=== PATIENT | female | born 1965 | race Caucasian/White ===

== ENCOUNTER 2017-10-15 08:21 | Emergency (ER) | payer OTHER ==
[~2017-10-15] VITALS: Ht 160 cm; Wt 117.9 kg
[~2017-10-15 08:21] MED LIST: (None)20 M1 PO; ALBU90OI6 INH; BUPR100 PO; BUPR75 PO; BUSP15 PO; Bupropion HCl200 MG PO; CRUTCH4 USE; CYCL10 PO; DESO.05TCA TP; DIPH50; DIPH50 PO; DOCU100 PO; DULO60 PO; FLUSAL2505 IH; HYDACE5 PO; IBUP800 PO; LORA10ER; METCAR500 PO; METPRE4DP PO; MONT10T; MONT10T PO; MONTELUKAST SOD10 MG PO; NAPR550 PO; NITR100CA PO; Naprosyn500 MG PO; ONDA4 PO; OXYACE5T PO; Prednisone20 MG PO; QVAR7.3 G1 IH; RA FISH OIL PO; RANI150 PO; RXCLIN PO; RXHYDACE PO; RXONDA4ODT MM; STRATTERA; Simvastatin20 MG PO; TOBR.3OPSO OP; TRAM50; TRAM50 PO; TRAZ50 PO; VIIBRYD10 MG PO; [UNRECOGNIZED DRUG - REMARK]
[2017-10-15] MEDS ORDERED: HINGED KNEE SUPPORT (09:48)
[2018-10-01] MEDS ORDERED: MONT10T PO (16:25)
[2018-10-01] MEDS ORDERED: PRAV20 PO (16:26)
[2018-10-01] MEDS ORDERED: DIPH50 PO (16:26)
[2018-10-01] MEDS ORDERED: ADVIL100 MG PO (16:26)
[2018-10-01] MEDS ORDERED: FISH OIL 1,0001 EAC1 PO (16:27)
[2018-10-01] MEDS ORDERED: Hair, Skin & N1 EACH PO (16:27)
[2018-10-01] MEDS ORDERED: TRIA15CR3 TOP (16:28)
[2018-10-01] MEDS ORDERED: ALBU3IS INH (16:29)
[2018-10-01] MEDS ORDERED: QVAR REDIHALE10.6 G1 INH (16:29)
[2018-10-01] MEDS ORDERED: Metamucil Smooth1 EA PO (16:30)
[2018-10-01] MEDS ORDERED: PRAZ5 PO (16:32)
[2018-10-01] MEDS ORDERED: PROBIOTIC1 EAC1 PO (16:32)
[2018-10-01] MEDS ORDERED: Artificial Tea1 EACH BOTHEYES (16:33)
[2018-10-01] MEDS ORDERED: FLONASE ALLERG9.9 ML (16:34)
[2018-10-01] MEDS ORDERED: CHOL10002 PO ×2 (16:34→16:37)
[2018-10-01] MEDS ORDERED: BUPR150ER PO (16:34)
[2018-10-01] MEDS ORDERED: METCAR500 PO (16:35)
[2018-10-01] MEDS ORDERED: NICO21TP TOP (16:35)
[2018-10-01] MEDS ORDERED: CLON.5 PO (16:36)
[2018-10-01] MEDS ORDERED: CHLO25B PO (16:36)
[2018-10-01] MEDS ORDERED: Adipex-P37.5 MG PO (16:36)
[2018-10-01] MEDS ORDERED: ESTRADIOL42.5 GM VAG (16:38)
== END 2017-10-15 10:06 | disposition home or self-care (01) ==
LOC: ER 08:21
DX: M25.561 Pain in right knee (principal); F32.9 Major depressive disorder, single episode, unspecified; F41.9 Anxiety disorder, unspecified; J45.909 Unspecified asthma, uncomplicated; Z91.048 Other nonmedicinal substance allergy status; Z79.899 Other long term (current) drug therapy; Z90.89 Acquired absence of other organs; Z87.891 Personal history of nicotine dependence
CPT/HCPCS: 73564; 99283

== ENCOUNTER → 2017-11-14 | Outpatient (CLI) | payer OTHER ==
[~2017-11-14] MED LIST changes: +ADVIL100 MG PO; +ALBU3IS INH; +Adipex-P37.5 MG PO; +Artificial Tea1 EACH BOTHEYES; +BUPR150ER PO; +CHLO25B PO; +CHOL10002 PO; +CLON.5 PO; +ESTR2 VAG; +ESTRADIOL42.5 GM VAG; +FISH OIL 1,0001 EAC1 PO; +FLONASE ALLERG9.9 ML; +HINGED KNEE SUPPORT; +Hair, Skin & N1 EACH PO; +Metamucil Smooth1 EA PO; +NICO21TP TOP; +PRAV20 PO; +PRAZ2 PO; +PRAZ5 PO; +PROBIOTIC1 EAC1 PO; +QVAR REDIHALE10.6 G1 INH; +TRIA15CR3 TOP
[2017-11-14 10:26] LABS: Source, Urine Clean Catch
[2017-11-14 13:06] LABS: Bilirubin, Urine Neg (Neg); Blood, Urine 3+ (Neg); Glucose Qualitative, Urine Neg (Neg); Ketones, Urine Neg (Neg); Leukocyte Esterase, Urine 2+ (Neg); Nitrite, Urine Neg (Neg); Protein, Urine Neg (Neg); Urobilinogen, Urine NORM (Normal)
[2017-11-14 13:19] LABS: Appearance, Urine Clear (Clear); Color, Urine Yellow (P-Yellow)
[2017-11-14 13:20] LABS: Bacteria Few /hpf; Squamous Epithelial Cells Mod /hpf (Few)
== END | disposition home or self-care (01) ==
LOC: LAB 10:25
PROVIDERS: Obstetrics & Gynecology
DX: R30.0 Dysuria (principal)
CPT/HCPCS: 81001; 87086

== ENCOUNTER 2018-03-06 23:12 | Emergency (ER) | payer OTHER ==
[~2018-03-06] VITALS: Ht 160 cm; Wt 113.4 kg
[~2018-03-06 23:12] MED LIST changes: -ADVIL100 MG PO; -ALBU3IS INH; -Adipex-P37.5 MG PO; -Artificial Tea1 EACH BOTHEYES; -BUPR150ER PO; -CHLO25B PO; -CHOL10002 PO; -CLON.5 PO; -ESTR2 VAG; -ESTRADIOL42.5 GM VAG; -FISH OIL 1,0001 EAC1 PO; -FLONASE ALLERG9.9 ML; -Hair, Skin & N1 EACH PO; -Metamucil Smooth1 EA PO; -NICO21TP TOP; -PRAV20 PO; -PRAZ2 PO; -PRAZ5 PO; -PROBIOTIC1 EAC1 PO; -QVAR REDIHALE10.6 G1 INH; -TRIA15CR3 TOP
[2018-03-06] MEDS ORDERED: PRAZ2 PO (23:33)
== END 2018-03-06 23:50 | disposition left against medical advice (07) ==
LOC: ER 23:12
DX: Z53.21 Procedure and treatment not carried out due to patient leaving prior to being seen by health care provider (principal)

== ENCOUNTER → 2018-09-25 | Outpatient (CLI) | payer OTHER ==
[~2018-09-25] MED LIST changes: +ADVIL100 MG PO; +ALBU3IS INH; +Adipex-P37.5 MG PO; +Artificial Tea1 EACH BOTHEYES; +BUPR150ER PO; +CHLO25B PO; +CHOL10002 PO; +CLON.5 PO; +ESTR2 VAG; +ESTRADIOL42.5 GM VAG; +FISH OIL 1,0001 EAC1 PO; +FLONASE ALLERG9.9 ML; +Hair, Skin & N1 EACH PO; +Metamucil Smooth1 EA PO; +NICO21TP TOP; +PRAV20 PO; +PRAZ2 PO; +PRAZ5 PO; +PROBIOTIC1 EAC1 PO; +QVAR REDIHALE10.6 G1 INH; +TRIA15CR3 TOP
[2018-09-25 14:48] LABS: Source, Urine Clean Catch
[2018-09-25 18:11] LABS: Bilirubin, Urine Neg (Neg); Blood, Urine Neg (Neg); Glucose Qualitative, Urine Neg (Neg); Ketones, Urine Neg (Neg); Leukocyte Esterase, Urine Neg (Neg); Nitrite, Urine Neg (Neg); Protein, Urine Neg (Neg); Specific Gravity, Urine 1.015 (1.003-1.022); Urobilinogen, Urine NORM (Normal)
[2018-09-25 18:45] LABS: Appearance, Urine Clear (Clear); Color, Urine Yellow (P-Yellow)
== END | disposition home or self-care (01) ==
LOC: LAB 14:37 → LAB SHORT 14:37
PROVIDERS: Obstetrics & Gynecology
DX: R82.90 Unspecified abnormal findings in urine (principal)
CPT/HCPCS: 81003

== ENCOUNTER 2018-10-03 05:48 | Day surgery (SDC) | payer OTHER ==
[~2018-10-03] VITALS: Ht 157.5 cm; Wt 119.3 kg
[~2018-10-03 05:48] MED LIST changes: -ESTR2 VAG
[2018-10-03] MEDS ORDERED: IBUP800 PO (06:50)
[2018-10-03] MEDS ORDERED: TRIA15CR3 TOP (06:51)
[2018-10-03] MEDS ORDERED: QVAR REDIHALE10.6 G1 INH (06:52)
[2018-10-03] MEDS ORDERED: ESTR2 VAG (06:54)
== END 2018-10-03 22:54 | disposition home or self-care (01) ==
LOC: ORSCMMR 05:48 → ORD 07:30 → ORSCMMR 22:54
PROVIDERS: Obstetrics & Gynecology
PROC: 0UDB8ZX Extraction of Endometrium, Via Natural or Artificial Opening Endoscopic, Diagnostic (ICD-10-PCS; principal; 2018-10-03 07:30)
DX: N95.0 Postmenopausal bleeding (principal); J44.9 Chronic obstructive pulmonary disease, unspecified; F17.210 Nicotine dependence, cigarettes, uncomplicated; E66.01 Morbid (severe) obesity due to excess calories; Z68.42 Body mass index [BMI] 45.0-49.9, adult
CPT/HCPCS: 88305; J0330; J1100; J2250; J2405; J3010; J7030; J7120

== ENCOUNTER → 2018-11-26 | Outpatient (CLI) | payer OTHER ==
[~2018-11-26] MED LIST changes: +ESTR2 VAG
== END ==
LOC: LAB UCHC 07:59 → LAB SHORT 07:59
DX: L57.0 Actinic keratosis (principal)
CPT/HCPCS: 88305

== ENCOUNTER → 2018-12-10 | Outpatient (CLI) | payer OTHER | END | disposition home or self-care (01) | LOC: LAB SHORT 14:45 → LAB EV 14:45 | DX: N39.0 Urinary tract infection, site not specified (principal) | CPT/HCPCS: 87086 ==

== ENCOUNTER → 2018-12-26 | Outpatient (CLI) | payer OTHER ==
[2018-12-26 18:36] LABS: Source, Urine Clean Catch
[2018-12-26 19:14] LABS: Bilirubin, Urine Neg (Neg); Blood, Urine Neg (Neg); Glucose Qualitative, Urine Neg (Neg); Ketones, Urine Neg (Neg); Leukocyte Esterase, Urine Neg (Neg); Nitrite, Urine Neg (Neg); Protein, Urine Neg (Neg); Urobilinogen, Urine NORM (Normal)
[2018-12-26 19:56] LABS: Appearance, Urine Clear (Clear); Color, Urine Yellow (P-Yellow)
== END ==
LOC: LAB SHORT 06:31 → LAB 06:31
PROVIDERS: Nurse Practitioner Family
DX: N39.0 Urinary tract infection, site not specified (principal)
CPT/HCPCS: 81003

== ENCOUNTER → 2019-02-28 | Outpatient (CLI) | payer OTHER ==
[2019-02-28 11:38] LABS: BASOPHILS ABSOLUTE AUTO 0.02 K/mm3 (0.00-0.23); BASOPHILS PERCENT AUTO 0 % (0-2); EOSINOPHILS ABSOLUTE AUTO 0.27 K/mm3 (0.00-0.68); EOSINOPHILS PERCENT AUTO 3 % (0-6); Hematocrit 39.4 % (33.0-51.0); Hemoglobin 12.8 g/dL (11.5-16.0); IMMATURE GRAN ABSOLUTE AUTO 0.06 K/mm3 (0.00-0.10); IMMATURE GRAN PERCENT AUTO 1 % (0-1); LYMPHOCYTES ABSOLUTE AUTO 2.04 K/mm3 (0.84-5.20); LYMPHOCYTES PERCENT AUTO 22 % (21-46); MONOCYTES ABSOLUTE AUTO 0.49 K/mm3 (0.16-1.47); MONOCYTES PERCENT AUTO 5 % (4-13); Mean Corpuscular HGB 27.1 pg (26.0-34.0); Mean Corpuscular HGB Conc 32.5 g/dL (31.5-36.5); Mean Corpuscular Volume 84 fL (80-100); Mean Platelet Volume 9.1 fL (9.1-12.4); NEUTROPHILS ABSOLUTE AUTO 6.21 K/mm3 (1.96-9.15); NEUTROPHILS PERCENT AUTO 68 % (41-73); Platelet Count 264 K/mm3 (150-400); RDW Coefficient Variation 14.6 % (11.7-14.2); RDW Standard Deviation 44.9 fL (35.1-46.3); Red Blood Cell Count 4.72 M/mm3 (3.80-5.20); White Blood Cell Count 9.09 K/mm3 (4.00-11.30)
[2019-02-28 11:49] LABS: Anion Gap 10 mmol/L (6-16); Blood Urea Nitrogen 8 mg/dL (8-24); CO2, Blood 27 mmol/L (21-32); Calcium, Blood 8.7 mg/dL (8.5-10.1); Chloride, Blood 105 mmol/L (98-108); Creatinine, Blood 0.89 mg/dL (0.40-1.00); Glomerular Filtration Rate >60 (60-); Glucose, Blood 133 mg/dL (70-99); Potassium, Blood 3.6 mmol/L (3.5-5.5); Sodium, Blood 142 mmol/L (136-145)
[2019-02-28 11:50] LABS: Troponin I <0.017 ng/mL (0.000-0.040)
== END | disposition home or self-care (01) ==
LOC: LAB EV 11:31 → LAB SHORT 11:31
PROVIDERS: Physician Assistant Surgical
DX: R42 Dizziness and giddiness (principal)
CPT/HCPCS: 80048; 84484; 85025

== ENCOUNTER 2019-04-20 10:53 | Emergency (ER) | payer OTHER ==
[~2019-04-20] VITALS: Ht 160 cm; Wt 117.9 kg
[2019-04-20 11:30] LABS: BASOPHILS ABSOLUTE AUTO 0.06 K/mm3 (0.00-0.23); BASOPHILS PERCENT AUTO 1 % (0-2); EOSINOPHILS ABSOLUTE AUTO 0.17 K/mm3 (0.00-0.68); EOSINOPHILS PERCENT AUTO 1 % (0-6); Hematocrit 43.1 % (33.0-51.0); Hemoglobin 14.1 g/dL (11.5-16.0); IMMATURE GRAN ABSOLUTE AUTO 0.18 K/mm3 (0.00-0.10); IMMATURE GRAN PERCENT AUTO 1 % (0-1); LYMPHOCYTES ABSOLUTE AUTO 3.25 K/mm3 (0.84-5.20); LYMPHOCYTES PERCENT AUTO 25 % (21-46); MONOCYTES ABSOLUTE AUTO 1.13 K/mm3 (0.16-1.47); MONOCYTES PERCENT AUTO 9 % (4-13); Mean Corpuscular HGB 27.1 pg (26.0-34.0); Mean Corpuscular HGB Conc 32.7 g/dL (31.5-36.5); Mean Corpuscular Volume 83 fL (80-100); Mean Platelet Volume 8.6 fL (9.1-12.4); NEUTROPHILS ABSOLUTE AUTO 8.15 K/mm3 (1.96-9.15); NEUTROPHILS PERCENT AUTO 63 % (41-73); Platelet Count 318 K/mm3 (150-400); RDW Standard Deviation 44.9 fL (35.1-46.3); Red Blood Cell Count 5.21 M/mm3 (3.80-5.20); White Blood Cell Count 12.94 K/mm3 (4.00-11.30)
[2019-04-20 11:50] LABS: Alanine Aminotransfer (ALT/SGP 29 U/L (12-78); Albumin, Blood 3.4 g/dL (3.4-5.0); Albumin/Globulin Ratio 0.9 (0.8-1.8); Alk Phos 132 U/L (50-136); Anion Gap 6 mmol/L (6-16); Aspartate Aminotrans (AST/SGOT 18 U/L (12-37); Bilirubin, Total 0.3 mg/dL (0.1-1.0); Blood Urea Nitrogen 9 mg/dL (8-24); CO2, Blood 26 mmol/L (21-32); Chloride, Blood 107 mmol/L (98-108); Creatinine, Blood 0.56 mg/dL (0.40-1.00); Globulin, Blood 3.6 g/dL (2.2-4.0); Glomerular Filtration Rate >60 (60-); Glucose, Blood 115 mg/dL (70-99); Potassium, Blood 3.9 mmol/L (3.5-5.5); Sodium, Blood 139 mmol/L (136-145); Troponin I <0.015 ng/mL (0.000-0.040)
[2019-04-20] MEDS ORDERED: Pepcid20 MG PO (13:41)
== END 2019-04-20 14:19 | disposition home or self-care (01) ==
LOC: ER 10:53
PROVIDERS: Emergency Medicine
DX: K29.70 Gastritis, unspecified, without bleeding (principal); T51.91XA Toxic effect of unspecified alcohol, accidental (unintentional), initial encounter; Z88.8 Allergy status to other drugs, medicaments and biological substances; Z91.048 Other nonmedicinal substance allergy status; Z79.899 Other long term (current) drug therapy; F32.9 Major depressive disorder, single episode, unspecified; F43.10 Post-traumatic stress disorder, unspecified; F41.9 Anxiety disorder, unspecified; F20.9 Schizophrenia, unspecified; F17.200 Nicotine dependence, unspecified, uncomplicated
CPT/HCPCS: 36415; 71046; 80053; 83690; 84484; 85025; 93005; 93010; 96374; 99285-25

== ENCOUNTER → 2019-04-23 | Outpatient (CLI) | payer OTHER ==
[~2019-04-23] MED LIST changes: +Pepcid20 MG PO
[2019-04-23 15:22] LABS: Source, Urine Clean Catch
[2019-04-23 16:58] LABS: Bilirubin, Urine Neg (Neg); Blood, Urine Neg (Neg); Glucose Qualitative, Urine Neg (Neg); Ketones, Urine 1+ (Neg); Leukocyte Esterase, Urine 1+ (Neg); Nitrite, Urine Neg (Neg); Protein, Urine Neg (Neg); Urobilinogen, Urine NORM (Normal)
[2019-04-23 17:38] LABS: Appearance, Urine Clear (Clear); Color, Urine Pale Yellow (P-Yellow)
[2019-04-23 17:39] LABS: Bacteria Few /hpf; Red Blood Cells, Urine 0-2 /hpf (0-2); Squamous Epithelial Cells Few /hpf (Few); White Blood Cells, Urine 0-2 /hpf (0-5)
== END | disposition home or self-care (01) ==
LOC: LAB 15:17 → LAB SHORT 15:17
PROVIDERS: Nurse Practitioner Family
DX: R60.0 Localized edema (principal)
CPT/HCPCS: 81001; 87086

== ENCOUNTER 2019-10-31 14:43 | Emergency (ER) | payer OTHER ==
[~2019-10-31] VITALS: Ht 160 cm; Wt 122.5 kg
[2019-10-31 15:48] LABS: BASOPHILS ABSOLUTE AUTO 0.04 K/mm3 (0.00-0.23); BASOPHILS PERCENT AUTO 0 % (0-2); EOSINOPHILS ABSOLUTE AUTO 0.25 K/mm3 (0.00-0.68); EOSINOPHILS PERCENT AUTO 3 % (0-6); Hemoglobin 13.7 g/dL (11.5-16.0); IMMATURE GRAN ABSOLUTE AUTO 0.06 K/mm3 (0.00-0.10); IMMATURE GRAN PERCENT AUTO 1 % (0-1); LYMPHOCYTES ABSOLUTE AUTO 2.69 K/mm3 (0.84-5.20); LYMPHOCYTES PERCENT AUTO 27 % (21-46); MONOCYTES ABSOLUTE AUTO 0.84 K/mm3 (0.16-1.47); MONOCYTES PERCENT AUTO 8 % (4-13); Mean Corpuscular HGB 27.7 pg (26.0-34.0); Mean Corpuscular HGB Conc 32.6 g/dL (31.5-36.5); Mean Corpuscular Volume 85 fL (80-100); Mean Platelet Volume 8.9 fL (9.1-12.4); NEUTROPHILS ABSOLUTE AUTO 6.18 K/mm3 (1.96-9.15); NEUTROPHILS PERCENT AUTO 62 % (41-73); Platelet Count 300 K/mm3 (150-400); RDW Coefficient Variation 14.2 % (11.7-14.2); RDW Standard Deviation 43.9 fL (35.1-46.3); Red Blood Cell Count 4.95 M/mm3 (3.80-5.20); White Blood Cell Count 10.06 K/mm3 (4.00-11.30)
[2019-10-31 16:10] LABS: Alanine Aminotransfer (ALT/SGP 32 U/L (12-78); Albumin, Blood 3.2 g/dL (3.4-5.0); Albumin/Globulin Ratio 0.8 (0.8-1.8); Alk Phos 131 U/L (50-136); Anion Gap 7 mmol/L (6-16); Aspartate Aminotrans (AST/SGOT 13 U/L (12-37); Bilirubin, Total 0.3 mg/dL (0.1-1.0); Blood Urea Nitrogen 16 mg/dL (8-24); CO2, Blood 27 mmol/L (21-32); Calcium, Blood 8.6 mg/dL (8.5-10.1); Chloride, Blood 106 mmol/L (98-108); Creatinine, Blood 0.64 mg/dL (0.40-1.00); Glomerular Filtration Rate >60 (60-); Glucose, Blood 127 mg/dL (70-99); Potassium, Blood 3.4 mmol/L (3.5-5.5); Sodium, Blood 140 mmol/L (136-145); Total Protein, Blood 7.2 g/dL (6.4-8.2)
[2019-10-31] MEDS ORDERED: ONDA4ODT MM (17:30)
== END 2019-10-31 17:44 | disposition home or self-care (01) ==
LOC: ER 14:43
PROVIDERS: Physician Assistant
DX: R42 Dizziness and giddiness (principal); F32.9 Major depressive disorder, single episode, unspecified; F41.9 Anxiety disorder, unspecified; F43.10 Post-traumatic stress disorder, unspecified; J45.909 Unspecified asthma, uncomplicated; Z79.899 Other long term (current) drug therapy; Z88.8 Allergy status to other drugs, medicaments and biological substances
CPT/HCPCS: 36415; 80053; 84484; 85025; 93005; 93010; 96374; 99284-25; J2405

== ENCOUNTER → 2020-08-10 | Outpatient (CLI) | payer OTHER ==
[~2020-08-10] MED LIST changes: +ONDA4ODT MM; +Ultram50 MG PO
== END | disposition home or self-care (01) ==
LOC: LAB SHORT 07:53 → PLD 07:53
DX: L82.1 Other seborrheic keratosis (principal)
CPT/HCPCS: 88305

== ENCOUNTER 2020-08-22 22:02 | Emergency (ER) | payer MEDICARE, OTHER ==
[~2020-08-22] VITALS: Ht 160 cm; Wt 117.9 kg
== END 2020-08-22 22:55 | disposition left against medical advice (07) ==
LOC: ER 22:02
DX: Z53.21 Procedure and treatment not carried out due to patient leaving prior to being seen by health care provider (principal)

== ENCOUNTER → 2020-08-25 | Outpatient (CLI) | payer MEDICARE, OTHER ==
[2020-08-27 15:07] LABS: HPV 16 Negative (Negative); HPV 18 Negative (Negative); HPV OTHER HR TYPES Negative (Negative)
== END ==
LOC: LAB SHORT 14:30 → LAB 14:30
PROVIDERS: Obstetrics & Gynecology
DX: Z01.419 Encounter for gynecological examination (general) (routine) without abnormal findings (principal)
CPT/HCPCS: 87624; G0123

== ENCOUNTER 2020-11-11 01:46 | Emergency (ER) | payer MEDICARE, OTHER ==
[~2020-11-11] VITALS: Ht 160 cm; Wt 116.1 kg
[2020-11-11 02:14] LABS: BASOPHILS ABSOLUTE AUTO 0.05 K/mm3 (0.00-0.23); BASOPHILS PERCENT AUTO 1 % (0-2); EOSINOPHILS ABSOLUTE AUTO 0.23 K/mm3 (0.00-0.68); EOSINOPHILS PERCENT AUTO 3 % (0-6); Hematocrit 46.3 % (33.0-51.0); Hemoglobin 14.2 g/dL (11.5-16.0); IMMATURE GRAN ABSOLUTE AUTO 0.03 K/mm3 (0.00-0.10); IMMATURE GRAN PERCENT AUTO 0 % (0-1); LYMPHOCYTES ABSOLUTE AUTO 2.95 K/mm3 (0.84-5.20); LYMPHOCYTES PERCENT AUTO 33 % (21-46); MONOCYTES ABSOLUTE AUTO 0.69 K/mm3 (0.16-1.47); MONOCYTES PERCENT AUTO 8 % (4-13); Mean Corpuscular HGB 27.7 pg (26.0-34.0); Mean Corpuscular HGB Conc 30.7 g/dL (31.5-36.5); Mean Corpuscular Volume 90 fL (80-100); Mean Platelet Volume 9.2 fL (9.1-12.4); NEUTROPHILS ABSOLUTE AUTO 4.95 K/mm3 (1.96-9.15); NEUTROPHILS PERCENT AUTO 56 % (41-73); Platelet Count 239 K/mm3 (150-400); RDW Coefficient Variation 14.2 % (11.7-14.2); RDW Standard Deviation 46.9 fL (35.1-46.3); Red Blood Cell Count 5.12 M/mm3 (3.80-5.20)
[2020-11-11 02:33] LABS: Alanine Aminotransfer (ALT/SGP 27 U/L (12-78); Albumin, Blood 3.2 g/dL (3.4-5.0); Albumin/Globulin Ratio 0.9 (0.8-1.8); Alk Phos 138 U/L (50-136); Anion Gap 8 mmol/L (6-16); Aspartate Aminotrans (AST/SGOT 14 U/L (12-37); Bilirubin, Total 0.4 mg/dL (0.1-1.0); Blood Urea Nitrogen 16 mg/dL (8-24); Bun/Creatinine Ratio 23.7 (12.0-20.0); CO2, Blood 24 mmol/L (21-32); Calcium, Blood 8.7 mg/dL (8.5-10.1); Chloride, Blood 109 mmol/L (98-108); Creatinine, Blood 0.68 mg/dL (0.40-1.00); Globulin, Blood 3.5 g/dL (2.2-4.0); Glomerular Filtration Rate >60 (60-); Glucose, Blood 116 mg/dL (70-99); Potassium, Blood 3.9 mmol/L (3.5-5.5); Sodium, Blood 141 mmol/L (136-145); Total Protein, Blood 6.7 g/dL (6.4-8.2); Troponin I <0.015 ng/mL (0.000-0.040)
== END 2020-11-11 05:14 | disposition home or self-care (01) ==
LOC: ER 01:46
PROVIDERS: Student in an Organized Health Care Education/Training Program
DX: K21.9 Gastro-esophageal reflux disease without esophagitis (principal); J45.909 Unspecified asthma, uncomplicated; F17.210 Nicotine dependence, cigarettes, uncomplicated; Z88.8 Allergy status to other drugs, medicaments and biological substances; Z91.09 Other allergy status, other than to drugs and biological substances; Z79.899 Other long term (current) drug therapy
CPT/HCPCS: 36415; 71046; 80053; 83690; 83880; 84484; 85025; 93005; 93010; 96374; 99285-25; A9270; J2405

== ENCOUNTER → 2020-12-07 | Outpatient (CLI) | payer MEDICARE, OTHER ==
[2020-12-09 15:00] LABS: CORONAVIRUS (COVID19) CSH-NRL Negative (Negative)
== END | disposition home or self-care (01) ==
LOC: PLD 11:30 → LAB SHORT 11:30
PROVIDERS: Nurse Practitioner Family
DX: Z20.822 Contact with and (suspected) exposure to COVID-19 (principal)
CPT/HCPCS: U0003

== ENCOUNTER → 2021-04-25 | Outpatient (CLI) | payer MEDICARE, OTHER ==
[2021-04-25 15:17] LABS: BASOPHILS ABSOLUTE AUTO 0.05 K/mm3 (0.00-0.23); BASOPHILS PERCENT AUTO 1 % (0-2); EOSINOPHILS ABSOLUTE AUTO 0.42 K/mm3 (0.00-0.68); EOSINOPHILS PERCENT AUTO 5 % (0-6); Hematocrit 41.6 % (33.0-51.0); Hemoglobin 13.5 g/dL (11.5-16.0); IMMATURE GRAN ABSOLUTE AUTO 0.05 K/mm3 (0.00-0.10); IMMATURE GRAN PERCENT AUTO 1 % (0-1); LYMPHOCYTES ABSOLUTE AUTO 2.31 K/mm3 (0.84-5.20); LYMPHOCYTES PERCENT AUTO 26 % (21-46); MONOCYTES ABSOLUTE AUTO 0.72 K/mm3 (0.16-1.47); MONOCYTES PERCENT AUTO 8 % (4-13); Mean Corpuscular HGB 28.1 pg (26.0-34.0); Mean Corpuscular HGB Conc 32.5 g/dL (31.5-36.5); Mean Corpuscular Volume 87 fL (80-100); Mean Platelet Volume 9.1 fL (9.1-12.4); NEUTROPHILS ABSOLUTE AUTO 5.22 K/mm3 (1.96-9.15); NEUTROPHILS PERCENT AUTO 60 % (41-73); Platelet Count 267 K/mm3 (150-400); RDW Coefficient Variation 14.1 % (11.7-14.2); RDW Standard Deviation 44.6 fL (35.1-46.3); Red Blood Cell Count 4.81 M/mm3 (3.80-5.20); White Blood Cell Count 8.77 K/mm3 (4.00-11.30)
[2021-04-25 15:42] LABS: Alanine Aminotransfer (ALT/SGP 26 U/L (12-78); Albumin, Blood 3.1 g/dL (3.4-5.0); Albumin/Globulin Ratio 0.9 (0.8-1.8); Alk Phos 117 U/L (40-126); Anion Gap 8 mmol/L (6-16); Aspartate Aminotrans (AST/SGOT 14 U/L (12-37); Bilirubin, Total 0.3 mg/dL (0.1-1.0); Blood Urea Nitrogen 11 mg/dL (8-24); Bun/Creatinine Ratio 17.5 (12.0-20.0); CO2, Blood 30 mmol/L (21-32); Calcium, Blood 8.2 mg/dL (8.5-10.1); Chloride, Blood 107 mmol/L (98-108); Creatinine, Blood 0.63 mg/dL (0.40-1.00); Globulin, Blood 3.3 g/dL (2.2-4.0); Glomerular Filtration Rate >60 (60-); Glucose, Blood 97 mg/dL (70-99); Sodium, Blood 145 mmol/L (136-145); Thyroid Stimulating Hormone 2.065 uIU/mL (0.360-4.800); Total Protein, Blood 6.4 g/dL (6.4-8.2)
== END | disposition home or self-care (01) ==
LOC: LAB 15:10 → LAB SHORT 15:10
PROVIDERS: Physician Assistant Medical
DX: R41.3 Other amnesia (principal); R53.83 Other fatigue
CPT/HCPCS: 80053; 82607; 82746; 84443; 85025

== ENCOUNTER 2021-05-23 13:52 | Inpatient (IN) | payer MEDICARE, OTHER ==
[~2021-05-23] VITALS: Ht 160 cm; Wt 114.0 kg
[~2021-05-23 13:52] MED LIST changes: +VITAMIN D310 MC4 PO
[2021-05-23 14:44] LABS: BASOPHILS ABSOLUTE AUTO 0.01 K/mm3 (0.00-0.23); BASOPHILS PERCENT AUTO 0 % (0-2); EOSINOPHILS PERCENT AUTO 0 % (0-6); Hematocrit 39.1 % (33.0-51.0); Hemoglobin 12.9 g/dL (11.5-16.0); IMMATURE GRAN ABSOLUTE AUTO 0.05 K/mm3 (0.00-0.10); IMMATURE GRAN PERCENT AUTO 1 % (0-1); LYMPHOCYTES ABSOLUTE AUTO 0.63 K/mm3 (0.84-5.20); LYMPHOCYTES PERCENT AUTO 8 % (21-46); MONOCYTES ABSOLUTE AUTO 0.34 K/mm3 (0.16-1.47); MONOCYTES PERCENT AUTO 4 % (4-13); Mean Corpuscular HGB 27.5 pg (26.0-34.0); Mean Corpuscular Volume 83 fL (80-100); Mean Platelet Volume 9.7 fL (9.1-12.4); NEUTROPHILS ABSOLUTE AUTO 6.95 K/mm3 (1.96-9.15); NEUTROPHILS PERCENT AUTO 87 % (41-73); Platelet Count 149 K/mm3 (150-400); RDW Coefficient Variation 14.4 % (11.7-14.2); RDW Standard Deviation 43.9 fL (35.1-46.3); Red Blood Cell Count 4.69 M/mm3 (3.80-5.20); White Blood Cell Count 7.98 K/mm3 (4.00-11.30)
[2021-05-23 14:56] LABS: Alanine Aminotransfer (ALT/SGP 53 U/L (12-78); Albumin, Blood 2.6 g/dL (3.4-5.0); Albumin/Globulin Ratio 0.7 (0.8-1.8); Alk Phos 86 U/L (50-136); Anion Gap 6 mmol/L (6-16); Aspartate Aminotrans (AST/SGOT 103 U/L (12-37); Bilirubin, Total 0.3 mg/dL (0.1-1.0); Blood Urea Nitrogen 19 mg/dL (8-24); Bun/Creatinine Ratio 23.4 (12.0-20.0); CO2, Blood 22 mmol/L (21-32); Calcium, Blood 7.9 mg/dL (8.5-10.1); Chloride, Blood 104 mmol/L (98-108); Creatinine, Blood 0.81 mg/dL (0.40-1.00); Globulin, Blood 3.9 g/dL (2.2-4.0); Glomerular Filtration Rate >60 (60-); Glucose, Blood 125 mg/dL (70-99); Sodium, Blood 132 mmol/L (136-145); Total Protein, Blood 6.5 g/dL (6.4-8.2); Troponin I <0.015 ng/mL (0.000-0.040)
[2021-05-23] MEDS ORDERED: FAMO20 PO (15:46)
[2021-05-23] MEDS ORDERED: BUPR150ER PO (15:46)
[2021-05-23] MEDS ORDERED: METHYLPHENIDATE54 MG PO (15:47)
[2021-05-23] MEDS ORDERED: KLONOPIN0.5 M3 PO (15:47)
[2021-05-23] MEDS ORDERED: MONT10T PO (15:47)
[2021-05-23] MEDS ORDERED: PRAZ5 PO (15:47)
[2021-05-23] MEDS ORDERED: PRAVASTATIN SOD20 MG PO (15:48)
[2021-05-23] MEDS ORDERED: FLUTICASONE-SA1 EA11 INH (15:50)
[2021-05-24 03:51] LABS: BASOPHILS ABSOLUTE AUTO 0.01 K/mm3 (0.00-0.23); BASOPHILS PERCENT AUTO 0 % (0-2); EOSINOPHILS PERCENT AUTO 0 % (0-6); Hematocrit 36.9 % (33.0-51.0); Hemoglobin 12.2 g/dL (11.5-16.0); IMMATURE GRAN ABSOLUTE AUTO 0.03 K/mm3 (0.00-0.10); IMMATURE GRAN PERCENT AUTO 0 % (0-1); LYMPHOCYTES ABSOLUTE AUTO 0.81 K/mm3 (0.84-5.20); LYMPHOCYTES PERCENT AUTO 12 % (21-46); MONOCYTES ABSOLUTE AUTO 0.34 K/mm3 (0.16-1.47); MONOCYTES PERCENT AUTO 5 % (4-13); Mean Corpuscular HGB 28.1 pg (26.0-34.0); Mean Corpuscular HGB Conc 33.1 g/dL (31.5-36.5); Mean Corpuscular Volume 85 fL (80-100); Mean Platelet Volume 9.4 fL (9.1-12.4); NEUTROPHILS ABSOLUTE AUTO 5.82 K/mm3 (1.96-9.15); NEUTROPHILS PERCENT AUTO 83 % (41-73); Platelet Count 146 K/mm3 (150-400); RDW Coefficient Variation 14.4 % (11.7-14.2); Red Blood Cell Count 4.34 M/mm3 (3.80-5.20); White Blood Cell Count 7.01 K/mm3 (4.00-11.30)
[2021-05-24 04:11] LABS: Alanine Aminotransfer (ALT/SGP 54 U/L (12-78); Albumin, Blood 2.2 g/dL (3.4-5.0); Albumin/Globulin Ratio 0.6 (0.8-1.8); Alk Phos 78 U/L (50-136); Anion Gap 5 mmol/L (6-16); Aspartate Aminotrans (AST/SGOT 90 U/L (12-37); Bilirubin, Total 0.3 mg/dL (0.1-1.0); Blood Urea Nitrogen 15 mg/dL (8-24); Bun/Creatinine Ratio 20.4 (12.0-20.0); CO2, Blood 24 mmol/L (21-32); Calcium, Blood 7.8 mg/dL (8.5-10.1); Chloride, Blood 107 mmol/L (98-108); Creatinine, Blood 0.74 mg/dL (0.40-1.00); Globulin, Blood 3.9 g/dL (2.2-4.0); Glomerular Filtration Rate >60 (60-); Glucose, Blood 143 mg/dL (70-99); Potassium, Blood 4.5 mmol/L (3.5-5.5); Sodium, Blood 136 mmol/L (136-145); Total Protein, Blood 6.1 g/dL (6.4-8.2)
--- NOTE | 2021-05-24 05:44 | NUR ---
SALES RECRUITING COORDINATOR SUMMARY PT HAS MAINTAINED O2 SATS >92% ON BIPAP W 80% FIO2. TELE SHOWING SR 60'S W SB IN 50'S WHILE ASLEEP. PT IS AXO X4 AND USES THE CALL LIGHT APPROPRIATELY. PT HAS HAD GOOD URINE OUTPUT THIS SHIFT. WILL REPORT TO ONCOMING RN.
--- NOTE | 2021-05-24 15:44 | NUR ---
Update 05/24/21: Pt. contacts Marlo argueta, Child, Pepe schneider, Child, . No previous home health services. Not on home O2 prior to admission. Home DME - CPAP due to [facility]. Hx. of Asthma and obesity. Pt. currently on BIPAP. Will continue to review chart notes daily and begin care coordination/discharge planning when appropriate.
--- NOTE | 2021-05-24 19:24 | NUR ---
PT GIVEN FREQUENT VERBAL REASSURANCE, ACETAMINOPHEN, AND PO LORAZEPAM PER DEC, PT REQUESTED BREATHING TREATMENT, DR. LOPEZ GAVE VERBAL ORDER FOR ALBUTEROL PER DEC PRN, PT RECEIVED PE STUDY FROM 1220 TO 1250 VIA WHEELCHAIR WITH OXYGEN THERAPY, NO INFUSIONS, AND TELEMETRY MONITORING, PT VOIDED IN ATTENDS AND WAS CHANGED, ORAL CARE GIVEN Q4H FOR BIPAP MASK USE, PT DESATURATED TO 70'S WHEN ON 15L AIRVO TO EAT BREAKFAST, VSS, PT DENIES ADDITIONAL CONCERNS AT THIS TIME
--- NOTE | 2021-05-24 23:50 | NUR ---
PT UPDATE PT CURRENTLY SATS 97% WHILE ON BIPAP RESTING IN BED.
--- NOTE | 2021-05-25 01:06 | NUR ---
PT UPDATE O2 TITRATED UP ON CPAP TO 95% D/T SATS 96-88%. SATS 88-90% ON CPAP AT THIS TIME.
--- NOTE | 2021-05-25 07:36 | NUR ---
SHIFT SUMMARY PT AOX4, SINUS-SINUS IBIS ON TELE. ONE EPISODE THIS AM OF HR DOWN TO 30'S, DOCTOR NOTIFIED. PT REPOSITIONS SELF IN BED, WEARS ATTENDS D/T STRESS INCONTINENCE. GIVEN BED BATH BY CAREN HOOPER, ASSISTS W/BATH. SWITCHED FROM CPAP TO BIPAP D/T LOW SATS ON CPAP AT 100%. CURRENTLY ON BIPAP 16/ AT 80%. ANXIETY WELL CONTROLLED THROUGH NIGHT. PT HAD SMALL BM IN NIGHT W/NANO RN ASSIST TO COMMODE.
--- NOTE | 2021-05-25 07:36 | NUR ---
CALL TO DR LOPEZ THIS RN CALLS DR LOPEZ TO NOTIFY OF PT HR DOWN TO 30'S W/PAUSE FOR ONE BEAT. GRAPHIC IN CHART. ONCOMING NURSE NOTIFIED AND AWARE.
--- NOTE | 2021-05-25 18:17 | NUR ---
SHIFT SUMMARY PT HAS BEEN ON BIPAP TODAY SHE WAS NOT TOLERATING HIGH FLOW AIRVO WHEN TRIALED THIS MORNING. PT HAS BEEN KEPT ON OCCASSIONAL CLEARS ONLY SHE COULD TOLERATE TO GET SMALL SIPS OF WATER. PT HAS MAINTAINED SATURATION ABOVE 90% WITH BIPAP. PT IS ALERT AND ORIENTED AND HAS BEEN UP TO THE CHAIR AND THE BSC WITH SBA. PT IS RESTING IN THE CHAIR AT THIS TIME
--- NOTE | 2021-05-26 07:30 | NUR ---
SHIFT SUMMARY PT AOX4, ON BIPAP THROUGHOUT NIGHT, SINUS IBIS 50'S-60'S. DYSPNEIC W/ACTIVITY, SATS DROP OFF OF BIPAP WHEN OFF FOR SHORT PERIODS OF TIME TO BRUSH TEETH OR DRINK FLUIDS. BIPAP AT 16/14 100% FIO2. RR 30'S-40'S T/O NIGHT. ENCOURAGED TO LAY ON SIDES FREQUENTLY, SATS 97-99% WHILE ON SIDE. NON-PRODUCTIVE COUGH THAT IS AGGRAVATING W/TURNS. PT TEARFUL THIS AM AND UPSET D/T DEPENDENCY ON BIPAP AND EPISODE OF INCONTINENCE AND SPILLING ENSURE. PT REASSURED BY THIS RN AND SANDRA MOROCHOA. PT C/O WANTING TO BE ABLE TO EAT. IV SALINE LOCKED.
--- NOTE | 2021-05-26 20:24 | NUR ---
PT GIVEN ORAL CARE AND DOT CARE AND REPOSITIONED FROM BED TO CHAIR; PT ABLE TO TOLERATE SMALL AMOUNTS OF CLEAR LIQUID INTAKE AND DIET ADVANCED TOLERATED; PT STAYED UP IN THE CHAIR FOR SEVERAL HOURS; PO ATIVAN GIVEN PER MAR FOR ANXIETY REPORT; PT TITRATED TO AIRVO AT 75L AND 80% FIO2 AT 1224 TO EAT LUNCH; PT BACK ON BIPAP AT 16/12 AT 80% AT 1350; PT ABLE TO VOID IN BSC ASSIST X1; PT DENIES ADDITIONAL CONCERNS AT THIS TIME
[2021-05-27 04:02] LABS: BASOPHILS ABSOLUTE AUTO 0.02 K/mm3 (0.00-0.23); BASOPHILS PERCENT AUTO 0 % (0-2); EOSINOPHILS PERCENT AUTO 0 % (0-6); Hematocrit 36.3 % (33.0-51.0); IMMATURE GRAN ABSOLUTE AUTO 0.22 K/mm3 (0.00-0.10); IMMATURE GRAN PERCENT AUTO 2 % (0-1); LYMPHOCYTES ABSOLUTE AUTO 0.81 K/mm3 (0.84-5.20); LYMPHOCYTES PERCENT AUTO 6 % (21-46); MONOCYTES ABSOLUTE AUTO 0.78 K/mm3 (0.16-1.47); MONOCYTES PERCENT AUTO 6 % (4-13); Mean Corpuscular HGB 27.9 pg (26.0-34.0); Mean Corpuscular HGB Conc 33.1 g/dL (31.5-36.5); Mean Corpuscular Volume 84 fL (80-100); Mean Platelet Volume 9.9 fL (9.1-12.4); NEUTROPHILS PERCENT AUTO 87 % (41-73); Platelet Count 216 K/mm3 (150-400); RDW Coefficient Variation 14.4 % (11.7-14.2); RDW Standard Deviation 44.2 fL (35.1-46.3); White Blood Cell Count 13.73 K/mm3 (4.00-11.30)
[2021-05-27 04:19] LABS: Anion Gap 5 mmol/L (6-16); Blood Urea Nitrogen 19 mg/dL (8-24); Bun/Creatinine Ratio 26.5 (12.0-20.0); CO2, Blood 26 mmol/L (21-32); Calcium, Blood 7.7 mg/dL (8.5-10.1); Chloride, Blood 107 mmol/L (98-108); Creatinine, Blood 0.72 mg/dL (0.40-1.00); Glomerular Filtration Rate >60 (60-); Glucose, Blood 135 mg/dL (70-99); Potassium, Blood 4.6 mmol/L (3.5-5.5); Sodium, Blood 138 mmol/L (136-145)
--- NOTE | 2021-05-27 06:16 | NUR ---
SHIFT SUMMARY NO ACUTE CHANGES THIS SHIFT. PT A&OX4. SP02>90% ON BIPAP, 80% FI02. TELEMETRY READ NSR, HR 90'S. PT HAD SOFT BP AT BEGINNING OF SHIFT. PT C/O OF BACK PAIN AND R LUNG PAIN. MEDICATED W/ TYLENOL PER EMAR AND HEATING PAD APPLIED W/ SOME RELIEF. PT C/O OF ANXIETY, ATIVAN GIVEN PER EMAR X1 THIS SHIFT. PT INCONTINENT OF URINE, C/D ATTENDS IN PLACE. PT SLEPT MOST OF SECOND HALF OF SHIFT. CALL LIGHT IN REACH. WILL GIVE REPORT TO ONCOMING NURSE.
--- NOTE | 2021-05-27 13:32 | NUR ---
Update 05/26/21: Per chart review with Dr. Acevedo, pt. not yet appropriate for discharge. Potential need for oxygen at discharge. Will continue to follow patient's care and address needs as indicated.
--- NOTE | 2021-05-27 17:59 | NUR ---
SHIFT SUMMARY; ASSUMED CARE AT 0700. BIPAP AND AIRVO THROUGHOUT SIFT. BIPAP 16/4 75%. AIR VO 75 % 60L FOR MEALS. UP TO CHAIR AT BEDSIDE FOR MEALS AND FOR SEVERAL HOURS IN AFTERNOON. STATES CANNOT PRONE DUE TO BACK PAIN. A/A/OX4. WILL CONTINUE TO MONITOR AND TREAT UNTIL CHANGE OF SHIFT.
[2021-05-28 04:01] LABS: BASOPHILS ABSOLUTE AUTO 0.02 K/mm3 (0.00-0.23); BASOPHILS PERCENT AUTO 0 % (0-2); EOSINOPHILS PERCENT AUTO 0 % (0-6); Hematocrit 34.9 % (33.0-51.0); Hemoglobin 11.6 g/dL (11.5-16.0); IMMATURE GRAN ABSOLUTE AUTO 0.32 K/mm3 (0.00-0.10); IMMATURE GRAN PERCENT AUTO 3 % (0-1); LYMPHOCYTES ABSOLUTE AUTO 0.61 K/mm3 (0.84-5.20); LYMPHOCYTES PERCENT AUTO 5 % (21-46); MONOCYTES ABSOLUTE AUTO 0.68 K/mm3 (0.16-1.47); MONOCYTES PERCENT AUTO 5 % (4-13); Mean Corpuscular HGB Conc 33.2 g/dL (31.5-36.5); Mean Corpuscular Volume 84 fL (80-100); Mean Platelet Volume 10.1 fL (9.1-12.4); NEUTROPHILS ABSOLUTE AUTO 10.88 K/mm3 (1.96-9.15); NEUTROPHILS PERCENT AUTO 87 % (41-73); Platelet Count 257 K/mm3 (150-400); RDW Coefficient Variation 14.2 % (11.7-14.2); RDW Standard Deviation 43.6 fL (35.1-46.3); Red Blood Cell Count 4.15 M/mm3 (3.80-5.20); White Blood Cell Count 12.51 K/mm3 (4.00-11.30)
[2021-05-28 04:14] LABS: Anion Gap 7 mmol/L (6-16); Blood Urea Nitrogen 19 mg/dL (8-24); Bun/Creatinine Ratio 30.9 (12.0-20.0); CO2, Blood 26 mmol/L (21-32); Calcium, Blood 7.8 mg/dL (8.5-10.1); Chloride, Blood 106 mmol/L (98-108); Creatinine, Blood 0.61 mg/dL (0.40-1.00); Glomerular Filtration Rate >60 (60-); Glucose, Blood 146 mg/dL (70-99); Potassium, Blood 4.4 mmol/L (3.5-5.5); Sodium, Blood 139 mmol/L (136-145)
--- NOTE | 2021-05-28 05:29 | NUR ---
SHIFT SUMMMARY NO ACUTE CHANGES THIS SHIFT. PT A&OX4. SP02>90% ON BIPAP FI02 80%. PT HAS SOB W/ EXERSION. PT MOTIVATED TO PRONE, SLEPT IN PRONE POSITION MULTIPLE TIMES T/O NIGHT. TELEMETRY READS NSR W/ 1ST DEGREE HB, HR 40'S-60'S. PT TOUCHED HIGH 30'S ONCE. TELEMETRY REPORTS PT "DROPPING AN OCCASIONAL BEAT." PT C/O OF BACK PAIN, MEDICATED W/ TYLENOL PER EMAR AND PLACED HEATING PAD W/ RELIEF. UP TO BSC TO VOID. PT SLEPT MOST OF NIGHT. CALL LIGHT IN REACH. AJ HOPKINS REPORT TO ONCOMING NURSE.
--- NOTE | 2021-05-28 18:03 | NUR ---
SHIFT SUMMARY; ASSUMED CARE AT 0700, REPORT FROM CARMITA MARRERO. A/Aretha/OX4 DURING SHIFT. AIRVO MOST OF DAY WITH INTERMITANT BIPAP USE NEEDED. AIR VO 65% 60L. SAT UP IN CHAIR MOST OF SHIFT, TRANSFERS TO BEDSIDE COMMODE INDEPENDANTLY, DYSPNEA WITH EXERTION WITH SATS DROPPING TO LOW 80'S WITH RECOVERY OF APPROX 5 MINS. 90% 02 SATS AT THIS TIME, WILL CONTINUE TO MONITOR AND TREAT UNTIL CHANGE OF SHIFT.
[2021-05-29 04:12] LABS: BASOPHILS ABSOLUTE AUTO 0.04 K/mm3 (0.00-0.23); BASOPHILS PERCENT AUTO 0 % (0-2); EOSINOPHILS PERCENT AUTO 0 % (0-6); Hematocrit 34.1 % (33.0-51.0); Hemoglobin 11.1 g/dL (11.5-16.0); IMMATURE GRAN ABSOLUTE AUTO 0.62 K/mm3 (0.00-0.10); IMMATURE GRAN PERCENT AUTO 5 % (0-1); LYMPHOCYTES ABSOLUTE AUTO 0.49 K/mm3 (0.84-5.20); LYMPHOCYTES PERCENT AUTO 4 % (21-46); MONOCYTES ABSOLUTE AUTO 0.54 K/mm3 (0.16-1.47); MONOCYTES PERCENT AUTO 4 % (4-13); Mean Corpuscular HGB 27.9 pg (26.0-34.0); Mean Corpuscular HGB Conc 32.6 g/dL (31.5-36.5); Mean Corpuscular Volume 86 fL (80-100); Mean Platelet Volume 10.5 fL (9.1-12.4); NEUTROPHILS ABSOLUTE AUTO 11.11 K/mm3 (1.96-9.15); NEUTROPHILS PERCENT AUTO 87 % (41-73); Platelet Count 250 K/mm3 (150-400); RDW Coefficient Variation 14.3 % (11.7-14.2); RDW Standard Deviation 44.3 fL (35.1-46.3); Red Blood Cell Count 3.98 M/mm3 (3.80-5.20)
[2021-05-29 04:25] LABS: Anion Gap 7 mmol/L (6-16); Blood Urea Nitrogen 18 mg/dL (8-24); Bun/Creatinine Ratio 31.2 (12.0-20.0); CO2, Blood 27 mmol/L (21-32); Chloride, Blood 105 mmol/L (98-108); Creatinine, Blood 0.58 mg/dL (0.40-1.00); Glomerular Filtration Rate >60 (60-); Glucose, Blood 129 mg/dL (70-99); Potassium, Blood 4.7 mmol/L (3.5-5.5); Sodium, Blood 139 mmol/L (136-145)
--- NOTE | 2021-05-29 17:44 | NUR ---
SHIFT SUMMARY; ASSUMED CARE AT 0700, REPORT FROM CARMITA MARRERO. Aretha/Aretha/OX4 THROUGHOUT SHIFT. INTERMITANT AIR VO AND BIPAP. INDEPENDANT TO BSC AND CHAIR DURING SHIFT. SAT UPRIGHT IN CHAIR AT BEDSIDE MOST OF DAY. AIR VO DECREASED TO 55% FIO2 50L. SATS 88-95% DURING SHIFT. DESATURATION WHEN CHANGING FROM BIPAP TO AIR VO WITH RECOVERY WITHIN 2-3 MINS. WILL CONTINUE TO MONITOR AND TREAT UNTIL CHANGE OF SHIFT.
[2021-05-30 04:23] LABS: Anion Gap 4 mmol/L (6-16); Blood Urea Nitrogen 19 mg/dL (8-24); Bun/Creatinine Ratio 32.1 (12.0-20.0); CO2, Blood 29 mmol/L (21-32); Calcium, Blood 8.2 mg/dL (8.5-10.1); Chloride, Blood 105 mmol/L (98-108); Creatinine, Blood 0.59 mg/dL (0.40-1.00); Glomerular Filtration Rate >60 (60-); Glucose, Blood 150 mg/dL (70-99); Potassium, Blood 4.9 mmol/L (3.5-5.5); Sodium, Blood 138 mmol/L (136-145)
--- NOTE | 2021-05-30 05:44 | NUR ---
SHIFT SUMMARY NO ACUTE CHANGES THIS SHIFT. PT A&OX4. SP02 TITRATED TO 92% ON BIPAP 30/07, 55% FI02. PT WEARING AIRVO AT START OF SHIFT BUT HAD PANIC ATTACK STATING SHE "COULDN'T BREATHE" DESPITE SATS OF >90%. PT PLACED ON BIPAP AND IMMEDIATELY BECAME AT EASE. PT WORE BIPAP REST OF SHIFT, Q4 ORAL CARE DONE. TELEMETRY READS SR/SB, HR 40;S-70'S. PT UP TO BSC W/ MINIMAL ASSISTANCE TO VOID AND HAVE ONE BM. PT C/O OF BACK PAIN, MEDICATED W/ TYLENOL X1. NEW IV PLACED THIS SHIFT. PT PRONED MULTIPLE TIMES DURING NIGHT. SLEPT WELL. CALL LIGHT IN REACH. WILL GIVE REPORT TO ONCOMING NURSE.
--- NOTE | 2021-05-30 15:41 | NUR ---
Update 05/30/21: Per chart review, patients condition seems to be improving. Recent vitals show SPO2 94% with BIPAP (FiO2 70% per last note). Possible need for HHC or EFM chronic care management at discharge. D/C date/time TBD.
[2021-05-30 17:59] LABS: BASOPHILS ABSOLUTE AUTO 0.04 K/mm3 (0.00-0.23); BASOPHILS PERCENT AUTO 0 % (0-2); EOSINOPHILS ABSOLUTE AUTO 0.02 K/mm3 (0.00-0.68); EOSINOPHILS PERCENT AUTO 0 % (0-6); Hematocrit 32.3 % (33.0-51.0); Hemoglobin 10.6 g/dL (11.5-16.0); IMMATURE GRAN ABSOLUTE AUTO 0.87 K/mm3 (0.00-0.10); IMMATURE GRAN PERCENT AUTO 7 % (0-1); LYMPHOCYTES ABSOLUTE AUTO 0.53 K/mm3 (0.84-5.20); LYMPHOCYTES PERCENT AUTO 4 % (21-46); MONOCYTES ABSOLUTE AUTO 0.39 K/mm3 (0.16-1.47); MONOCYTES PERCENT AUTO 3 % (4-13); Mean Corpuscular HGB 27.8 pg (26.0-34.0); Mean Corpuscular HGB Conc 32.8 g/dL (31.5-36.5); Mean Corpuscular Volume 85 fL (80-100); Mean Platelet Volume 9.8 fL (9.1-12.4); NEUTROPHILS ABSOLUTE AUTO 11.36 K/mm3 (1.96-9.15); NEUTROPHILS PERCENT AUTO 86 % (41-73); NRBC ABSOLUTE 0.02 K/mm3 (0.00-0.02); NRBC Auto 0.2 /100 WBC (0.0-0.2); Platelet Count 323 K/mm3 (150-400); RDW Coefficient Variation 14.2 % (11.7-14.2); Red Blood Cell Count 3.81 M/mm3 (3.80-5.20); White Blood Cell Count 13.21 K/mm3 (4.00-11.30)
[2021-05-30 18:55] LABS: BAND PERCENT MAN 5 % (0-8); BASOPHILS PERCENT MAN 0 % (0-2); EOSINOPHILS PERCENT MAN 0 % (0-6); METAMYELOCYTE ABSOLUTE MAN 0.26 K/mm3 (0.00-0.00); METAMYELOCYTE PERCENT MAN 2 % (0-0); MONOCYTES ABSOLUTE MAN 0.13 K/mm3 (0.16-1.47); MONOCYTES PERCENT MAN 1 % (4-13); NEUTROPHILS ABSOLUTE MAN 12.81 K/mm3 (1.96-9.15); SEG NEUTROPHILS PERCENT MAN 92 % (41-73); TOTAL CELLS COUNTED 100
--- NOTE | 2021-05-30 20:09 | NUR ---
SHIFT SUMMARY ASSUMED CARE OF PATIENT THIS AM AT APPROX 0700. PT ALERT, ORIENTED x4; ANXIOUS BUT COOPERATIVE WITH CARE. PT RESTING IN BED, UP TO CHAIR WITH SBA. WHILE PT UP IN CHAIR, AT APPROX 0830 SHE REPORTS CRAMPING TO LEFT UPPER QUAD, DR MARINA NOTIFIED AT BEDSIDE. INCREASED PAIN, MEDICATED WITH TYLENOL AND PHENERGAN/CODIENE PER ORDERS, ATTEMPTED TO PALPATE, SOFT, VERY TENDER. PT BACK TO BED, PAIN CONTINUES, HEATING PAD PLACED PER PT REQUEST. PT ANXIOUS AND STATES SHE IS FEELING SHORT OF AIR, SPO2 >90% RESP RATE INCREASED, MEDICATED WITH ATIVAN AND PLACED BACK IN BIPAP. PAIN CONTINUES TO INCREASE, NOTIFIED DR ROSE, NEW ORDER FOR FLEXIRIL, NO RELIEFE NOTED, PT EXPRESSES CONCERNS, STATES SHE HAS HAD A HERNIA REPAIR AND MESH PLACE AND IT FEELS LIKE SHE RIPPED SOMETHING, ASKING THAT THE DR COME TO THE ROOM; NOTFIED DR MARINA OF INCREASED PAIN, CONCERSN REGARDING HERNAIA REPAIR/MESH/RIPPING AND PT REQUEST TO SEE DR; NEW ORDERS FOR FENTANTL. DR AT BEDSIDE; NEW ORDERS FOR STAT CT OF ABD. PT TO IMAGING THIS EVENING, NOTIIFED DR MARINA OF RESULTS; NEW ORDERS TO D/C LOVENOX/ANTICOAGULENTS. STAT CBC AND PROVIDER CONSULT FOR SURGICAL. DR ZAMORA AT BEDSIDE THIS EVENING. DR MARINA CALLS WITH NEW ORDERS FOR CONSULT WITH DR TRIPLETT. PT UPDATED AND EDCUATED, SHE ASKED THAT HER SON LYNDON BE UPDATE, CALLED AND UPDATED. PT REPORTS NAUSEA T/O SHIFT, MEDICATED PER EMAR. PT SWITCHED BETWEEN BIPAP AND AIRVO T/O SHIFT, ANYTIME BIPAP OR AIRVO REMOVED, DESATURATES TO LOW 80'S, RECOVERS QUICKLY. OTHER VSS. NO OTHER ACUTE CHANGES NOTED. REPORT GIVEN TO ONCOMING RN.
[2021-05-30 22:25] LABS: Hemoglobin 10.3 g/dL (11.5-16.0)
--- NOTE | 2021-05-31 00:41 | NUR ---
CALL TO DR MORAN THIS RN CALL DR MORAN TO REPORT PT'S CONCERNS REGARDING HEMATOMA IN L ABD, PT C/O SEVERE, WORSENED PAIN WITH NO RELIEF W/ADMIN OF CURRENT MEDS GIVEN. DR MORAN GIVES ORDER TO UP FENTANYL TO 25-50 MCG Q2 HR AND CONTINUE MONITORING HGB AND NOTIFY PROVIDER PER ORDER. DR MORAN STATES SURGEON IS UNAVAILABLE TO COME SPEAK W/PT PER REQUEST AT THIS TIME, BUT TO NOTIFY HIM IF PT SHOULD SIGNIFICANTLY WORSEN. ORDER PLACED FOR URINARY CATHETER D/T PT DIFFICULTY AND DISCOMFORT USING BEDPAN FREQUENTLY.
--- NOTE | 2021-05-31 01:40 | NUR ---
PT UPDATE, CALL TO DR MORAN PT IS REPORTING NEW ONSET CP IN R SIDE CHEST/EPIGASTRIC AREA. PT STATES SHE IS UNABLE TO DESCRIBE THE PAIN. STATES SHE HAS NOT HAD PAIN LIKE THIS BEFORE. PAIN SEEMED TO START AFTER THIS RN REPOSITIONED PT AND LAID FLAT/SUPINE TO INSERT VILLA CATHETER PER ORDER. PT REPORTS PAIN IS 8/[address] MORAN GIVES ORDER FOR TROPONIN AND HGB TO BE DRAWN NOW.
[2021-05-31 02:21] LABS: BASOPHILS ABSOLUTE AUTO 0.02 K/mm3 (0.00-0.23); BASOPHILS PERCENT AUTO 0 % (0-2); EOSINOPHILS PERCENT AUTO 0 % (0-6); Hematocrit 27.8 % (33.0-51.0); Hemoglobin 9.3 g/dL (11.5-16.0); IMMATURE GRAN ABSOLUTE AUTO 0.52 K/mm3 (0.00-0.10); IMMATURE GRAN PERCENT AUTO 4 % (0-1); LYMPHOCYTES ABSOLUTE AUTO 0.36 K/mm3 (0.84-5.20); LYMPHOCYTES PERCENT AUTO 3 % (21-46); MONOCYTES ABSOLUTE AUTO 0.42 K/mm3 (0.16-1.47); MONOCYTES PERCENT AUTO 4 % (4-13); Mean Corpuscular HGB 28.1 pg (26.0-34.0); Mean Corpuscular HGB Conc 33.5 g/dL (31.5-36.5); Mean Corpuscular Volume 84 fL (80-100); Mean Platelet Volume 9.8 fL (9.1-12.4); NEUTROPHILS ABSOLUTE AUTO 10.59 K/mm3 (1.96-9.15); NEUTROPHILS PERCENT AUTO 89 % (41-73); Platelet Count 267 K/mm3 (150-400); RDW Coefficient Variation 14.2 % (11.7-14.2); RDW Standard Deviation 43.4 fL (35.1-46.3); Red Blood Cell Count 3.31 M/mm3 (3.80-5.20); White Blood Cell Count 11.91 K/mm3 (4.00-11.30)
[2021-05-31 02:41] LABS: Alanine Aminotransfer (ALT/SGP 78 U/L (12-78); Albumin, Blood 2.1 g/dL (3.4-5.0); Albumin/Globulin Ratio 0.7 (0.8-1.8); Alk Phos 70 U/L (50-136); Anion Gap 3 mmol/L (6-16); Aspartate Aminotrans (AST/SGOT 25 U/L (12-37); Bilirubin, Total 0.5 mg/dL (0.1-1.0); Blood Urea Nitrogen 21 mg/dL (8-24); CO2, Blood 31 mmol/L (21-32); Calcium, Blood 7.7 mg/dL (8.5-10.1); Chloride, Blood 99 mmol/L (98-108); Ferritin, Serum 855 ng/mL (8-252); Globulin, Blood 3.2 g/dL (2.2-4.0); Glomerular Filtration Rate >60 (60-); Glucose, Blood 155 mg/dL (70-99); Lactate Dehydrogenase (Ld),Bld 373 U/L (100-240); Magnesium, Blood 2.4 mg/dL (1.6-2.4); Phosphorus, Blood 5.1 mg/dL (2.5-4.9); Sodium, Blood 133 mmol/L (136-145); Total Protein, Blood 5.3 g/dL (6.4-8.2); Troponin I <0.015 ng/mL (0.000-0.040)
[2021-05-31 05:06] LABS: Source, Urine Catheter
[2021-05-31 05:08] LABS: Bilirubin, Urine Neg (Neg); Blood, Urine Neg (Neg); Glucose Qualitative, Urine Neg (Neg); Ketones, Urine Neg (Neg); Leukocyte Esterase, Urine Neg (Neg); Nitrite, Urine Neg (Neg); Protein, Urine 1+ (Neg); Specific Gravity, Urine 1.015 (1.003-1.022); Urobilinogen, Urine NORM (Normal); pH, Urine 6.5 (5.0-8.0)
[2021-05-31 05:14] LABS: Appearance, Urine Clear (Clear); Color, Urine Yellow (P-Yellow)
[2021-05-31 06:14] LABS: Hematocrit 26.9 % (33.0-51.0); Hemoglobin 8.9 g/dL (11.5-16.0)
--- NOTE | 2021-05-31 06:50 | NUR ---
CALL TO DR MORAN THIS RN CALLS DR MORAN TO NOTIFY OF PT'S MOST RECENT HGB AND DOWNWARD TREND, DR MORAN REVIEWS RECENT LABS, TO PRACTICE PHYSICIAN TO DETERMINE CONTINUED CARE THIS AM. NO NEW ORDERS AT THIS TIME.
--- NOTE | 2021-05-31 08:00 | NUR ---
SHIFT SUMMARY PT AOX4 T/O SHIFT. PRIOR TO THIS RN TO BEDSIDE TO ASSESS PT FOLLOWING SHIFT CHANGE, PT BECAME AGITATED AND VERY ANXIOUS, CALLED SOFTWARE SYSTEMS ENGINEER TO BEDSIDE TO USES COMMODE AND THEN ON MISHAYLA SOFTWARE SYSTEMS ENGINEER'S ARRIVAL AT BEDSIDE TOLD SOFTWARE SYSTEMS ENGINEER SHE JUST WANTED SOMEONE AT BEDSIDE. PER JEANNIEAretha SOFTWARE SYSTEMS ENGINEER, PT STATED SHE WOULD STEPHEN THE STAFF AND REPORTED BEING VERY UPSET W/HER CARE AND LACK OF STAFF ATTENTIVENESS. THIS RN NOTIFIED BY CNA. AMOR RT AT BEDSIDE TO ASSESS PT AND PROVIDE SOME VERBAL REASSURANCE. THIS RN TO BEDSIDE TO SPEAK W/PT, PT EXPRESSES FRUSTRATION W/CURRENT PROBLEMS INCLUDING NEW FINDING OF ABD HEMATOMA. PT TELLS THIS RN AT THE TIME THAT SHE WANTED THE SURGEON TO COME SEE HER IMMEDIATELY AND TO TAKE CARE OF THE HEMATOMA. THIS RN ATTEMPTS TO REASSURE PT AND EXPLAIN PLAN REPORTED TO THIS RN FROM DAY RN JOSE E. PT SHAKES HEAD AT THIS RN, WANTS TO SPEAK TO SON ON PHONE. THIS RN REQUESTS THAT PT WAIT AT THE TIME D/T LOW SATS WHILE ON BIPAP. PT AGREEABLE. THIS RN CALMS PT AND THEN MEDICATED PER MAR. NOTIFIED PROVIDER OF INCIDENT FOLLOWING RESULT OF HGB. PT CALMS W/THIS RN MEDICATING PER MAR, STILL MAINTAINS ANXIETY AND LACK OF PAIN CONTROL. THIS RN ADMIN HIGHER DOSE OF FENTANYL PER ORDER FROM DR MORAN WHICH SEEMED TO HELP W/PT PAIN. PT HAD REPORTED CP NOTED AND REPORTED TO DR MORAN, SINCE RESOLVED. TROPONIN WAS NEGATIVE. SBP 100'S-120'S, HOWEVER PT HAD ALSO BEEN MEDICATED W/PRAZOSIN PER ORDER AT BEDTIME AND FREQUENT PAIN MED PER MAR. VILLA CATHETER INSERTED PER ORDER D/T PT REPORTING SEVERE PAIN W/USING BEDPAN AND DIFFICULTY W/MOVEMENT IN BED ACCOMPANIED BY NEED TO FREQUENTLY URINATE. PT SEEMED MORE COMFORTABLE AND RESTFUL FOLLOWING PLACEMENT OF VILLA. CALL TO DR MORAN THIS AM PREVIOUSLY DOCUMENTED, ORDERS FOR PRBC TO BE INFUSED THIS AM AND REPORT FROM DR MORAN THAT DR TRIPLETT WILL BE IN TO SEE PT THIS MORNING. PT HAS BEEN NPO SINCE 0000 A PRECAUTION IN CASE INTERVENTION NEEDS TO BE PERFORMED TO AID IN RESOLUTION OF SUSPECTED BLEEDING IN LUQ. IV IS SALINE LOCKED.
--- NOTE | 2021-05-31 08:17 | NUR ---
[place] of Care Pt is a/o x 4 and cooperative with her care. She is still anxious. Plan is for Dr Lindsey to come and see her this morning. 1 Unit of PRBCs has been ordered. Pt is able to re-position herself but does still need encouragement. Oral care was completed. VSS.
--- NOTE | 2021-05-31 13:29 | NUR ---
Update Dr Lindsey came to see the pt. At this point there will be no intervention and pt can go ahead and resume her previous diet and try to mobilize as she can tolerate.
--- NOTE | 2021-05-31 17:01 | NUR ---
Shift Summary Pt is a/o x 4 and has no c/o pain today. She continues on BIPAP @ 70% and has been maintaining her SATS above 90% . she received 1 unit of RBCs this morning per Dr orders. Dr Lindsey saw the pt at the bedside and reported that the hematoma is resolving and will not need his intervention at this time. A powerglide was started in her left upper arm for access. she has been re-positioning herself and is now up to the chair with SBA. She is able to make her needs known and calls often. She has her call light in reach.
[2021-06-01 04:29] LABS: BASOPHILS ABSOLUTE AUTO 0.01 K/mm3 (0.00-0.23); BASOPHILS PERCENT AUTO 0 % (0-2); EOSINOPHILS ABSOLUTE AUTO 0.02 K/mm3 (0.00-0.68); EOSINOPHILS PERCENT AUTO 0 % (0-6); Hematocrit 25.2 % (33.0-51.0); Hemoglobin 8.5 g/dL (11.5-16.0); IMMATURE GRAN ABSOLUTE AUTO 0.81 K/mm3 (0.00-0.10); IMMATURE GRAN PERCENT AUTO 6 % (0-1); LYMPHOCYTES ABSOLUTE AUTO 0.36 K/mm3 (0.84-5.20); LYMPHOCYTES PERCENT AUTO 3 % (21-46); MONOCYTES ABSOLUTE AUTO 0.43 K/mm3 (0.16-1.47); MONOCYTES PERCENT AUTO 3 % (4-13); Mean Corpuscular HGB 28.8 pg (26.0-34.0); Mean Corpuscular HGB Conc 33.7 g/dL (31.5-36.5); Mean Corpuscular Volume 85 fL (80-100); NEUTROPHILS ABSOLUTE AUTO 12.54 K/mm3 (1.96-9.15); NEUTROPHILS PERCENT AUTO 89 % (41-73); NRBC ABSOLUTE 0.03 K/mm3 (0.00-0.02); NRBC Auto 0.2 /100 WBC (0.0-0.2); Platelet Count 287 K/mm3 (150-400); RDW Coefficient Variation 14.1 % (11.7-14.2); RDW Standard Deviation 43.4 fL (35.1-46.3); Red Blood Cell Count 2.95 M/mm3 (3.80-5.20); White Blood Cell Count 14.17 K/mm3 (4.00-11.30)
[2021-06-01 04:49] LABS: Anion Gap 5 mmol/L (6-16); Blood Urea Nitrogen 22 mg/dL (8-24); Bun/Creatinine Ratio 35.9 (12.0-20.0); CO2, Blood 30 mmol/L (21-32); Calcium, Blood 7.8 mg/dL (8.5-10.1); Chloride, Blood 99 mmol/L (98-108); Creatinine, Blood 0.61 mg/dL (0.40-1.00); Glomerular Filtration Rate >60 (60-); Glucose, Blood 158 mg/dL (70-99); Potassium, Blood 4.9 mmol/L (3.5-5.5); Sodium, Blood 134 mmol/L (136-145)
[2021-06-01 05:15] LABS: BAND PERCENT MAN 3 % (0-8); BASOPHILS PERCENT MAN 0 % (0-2); EOSINOPHILS PERCENT MAN 0 % (0-6); LYMPHOCYTES ABSOLUTE MAN 0.14 K/mm3 (0.84-5.20); LYMPHOCYTES PERCENT MAN 1 % (21-46); METAMYELOCYTE ABSOLUTE MAN 0.56 K/mm3 (0.00-0.00); METAMYELOCYTE PERCENT MAN 4 % (0-0); MONOCYTES ABSOLUTE MAN 0.42 K/mm3 (0.16-1.47); MONOCYTES PERCENT MAN 3 % (4-13); NEUTROPHILS ABSOLUTE MAN 13.03 K/mm3 (1.96-9.15); SEG NEUTROPHILS PERCENT MAN 89 % (41-73); TOTAL CELLS COUNTED 100
--- NOTE | 2021-06-01 06:38 | NUR ---
SHIFT SUMMARY NO ACUTE CHANGES THIS SHIFT. PT A+OX4. WAS ON 50L 85% FIO02 AIRVO FIRST HALF OF SHIFT AND MAINTAINED O2 SATS OVER 90%. DESATS WHILE TALKING OR WITH ACTIVITY. SWITCHED TO BIPAP 14/10 85% FIO2. POWERGLIDE IN LEFT ARM. BACK/NECK PAIN MANAGED WITH ACETAMINOPHEN. ANXIOUS AT TIMES, MEDICATED PER EMAR. ABLE TO SLEEP AFTER PLACING BIPAP AND ADMINISTERING ATIVAN. ACHS FOR CBGS AND VILLA DRAINING TERESA COLORED URINE. PT LEFT IN BED SLEEPING WITH CALL ALARM AT SIDE. WILL CONTINUE TO MONITOR UNTIL REPORT GIVEN TO MICHELLE RN.
[2021-06-02 04:23] LABS: Hematocrit 26.5 % (33.0-51.0); Hemoglobin 8.9 g/dL (11.5-16.0); Mean Corpuscular HGB 28.8 pg (26.0-34.0); Mean Corpuscular HGB Conc 33.6 g/dL (31.5-36.5); Mean Corpuscular Volume 86 fL (80-100); Mean Platelet Volume 9.7 fL (9.1-12.4); NRBC ABSOLUTE 0.05 K/mm3 (0.00-0.02); NRBC Auto 0.3 /100 WBC (0.0-0.2); Platelet Count 300 K/mm3 (150-400); RDW Coefficient Variation 14.3 % (11.7-14.2); RDW Standard Deviation 43.9 fL (35.1-46.3); Red Blood Cell Count 3.09 M/mm3 (3.80-5.20); White Blood Cell Count 15.39 K/mm3 (4.00-11.30)
[2021-06-02 04:46] LABS: Anion Gap 7 mmol/L (6-16); Blood Urea Nitrogen 19 mg/dL (8-24); Bun/Creatinine Ratio 35.1 (12.0-20.0); CO2, Blood 28 mmol/L (21-32); Calcium, Blood 8.3 mg/dL (8.5-10.1); Chloride, Blood 102 mmol/L (98-108); Creatinine, Blood 0.54 mg/dL (0.40-1.00); Glomerular Filtration Rate >60 (60-); Glucose, Blood 148 mg/dL (70-99); Potassium, Blood 4.8 mmol/L (3.5-5.5); Sodium, Blood 137 mmol/L (136-145)
[2021-06-02 05:32] LABS: BASOPHILS PERCENT MAN 0 % (0-2); EOSINOPHILS PERCENT MAN 0 % (0-6); LYMPHOCYTES PERCENT MAN 2 % (21-46); MONOCYTES PERCENT MAN 2 % (4-13); MYELOCYTE PERCENT MAN 2 % (0-0); NEUTROPHILS ABSOLUTE MAN 14.46 K/mm3 (1.96-9.15); SEG NEUTROPHILS PERCENT MAN 94 % (41-73); TOTAL CELLS COUNTED 100
--- NOTE | 2021-06-02 06:28 | NUR ---
SHIFT SUMMARY NO ACUTE EVENTS THIS SHIFT. PT ALERT AND ORIENTED. ANXIOUS ABOUT CURRENT ILLNESS AND USING BIPAP. HR SINUS TACH 100'S AND BP STABLE. O2 SATS MAINTAINING AT OVER 90% AT REST. DESATS WITH ACTIVITY. VILLA IN PLACE DRAINING TO GRAVITY. CURRENTLY ON AIRVO 50L AND 85% FIO2. PT LEFT IN CHAIR RESTING WITH CALL ALARM AT SIDE. WILL CONTINUE TO MONITOR UNTIL REPORT GIVEN TO DAYSIDFT CARMITA
--- NOTE | 2021-06-02 09:39 | NUR ---
pt sitting up in chair this morning; Cheerfully conversant. ATe all of breakfast, and took oral medications without difficulty. States she would love to give herself a sponge bath. Provided with all items needed and she was doing this while sitting up in chair. Taking breaks occasionally when the activity makes her feel short of breath.
--- NOTE | 2021-06-02 14:22 | NUR ---
Telephone report given to CARMITA Nunes at this time. Pt will be transferred to [facility] shortly.
--- NOTE | 2021-06-02 16:31 | NUR ---
PATIENT CONCERNS: PATIENT HAS A FEW REQUESTS AND CONCERNS. SHE IS REQUESTING THE USE OF A FLUTTER VALVE AND TO HAVE HER ATORVASTATIN MODIFIED. SHE REPORTED THAT THE DOSE IN THE HOSPITAL IS TOO HIGH. IT IS HIGHER THAN HER HOME DOSE. DISCUSSED WITH DR. ROSE. NEW ORDERS RECEIVED AND ENTERED.
--- NOTE | 2021-06-02 19:01 | NUR ---
END OF SHIFT SUMMARY: PATIENT ARRIVED TO UNIT VIA STRETCHER. PATIENT ALERT AND ORIENTED. PATIENT UTILIZING HIGH FLOW, HUMIDIFIED AIR. PATIENT WILL DESATURATE LOW 84% WITH TALKING AND WITH MOVEMENT. PATIENT IS AWARE THAT ONCE THE CONTINUIOUS BIOX ALARMS, SHE NEEDS TO TAKE A BREAK AND FOCUS ON HER BREATHING. SHE RESPONDS WELL TO SOOTHING VOICE AND CALMING WORDS. PATIENT EXPRESSES SOME ANXIETY. PATIENT EXPRESSED SOME CONCERNS AND REQUESTS. PROVIDED SUPPORT, ENCOURAGEMENT AND WAS ABLE TO OBTAIN NEW ORDERS. PATIENT INDEPENDENT TO THE BSC. PATIENT IS CAREFUL OF THE EQUIPMENT AND ABLE TO MANAGE THE LINES INDEPENDENTLY.
--- NOTE | 2021-06-03 04:32 | NUR ---
SHIFT SUMMARY PT ON BIPAP V60 50 LPM AND FIO2 80. O2 SATS IN THE LOW 90'S. PT SWITCHED BETWEEN FACE MASK AND HIGH FLOW NC. PT DESATS INTO THE 70'S WITH EXERTION. TAKES SEVERAL MINUTES TO RECOVER AFTER RESTING AGAIN. PT SELF PRONES INTERMITTENTLY. INCONTINENT WITH COUGHING. ATTENDS IN PLACE. PT WITH SOME MILD CONFUSION. VERY BUSY. TALKS A LOT. PLEASANT. EYE LUBRICANT PROVIDED FOR DRY EYES. PT BECOMES ANXIOUS AT TIMES. MEDICATED W/ PRN ATIVAN. NO ACUTE CHANGES THIS EVENING. WILL CONTINUE TO MONITOR.
--- NOTE | 2021-06-03 10:46 | NUR ---
Pastoral Care: Pt was very anxious. Pt has it in her mind there is something wrong with the 02 machine. Attempted to ease pt's mind. Pt requests someone from the ER with "COVID experience" to work with the machine to check it over. Pt also talks about the bipap being more effective. Verbal prayer offered as requested. PC promised to speak with RN. Spoke with child support case officer. Would it be helpful for RT to "check over the machine?" Would it be helpful to switch 02 to Bi-pap? I will remain available.
[2021-06-03 11:59] LABS: PCO2 Arterial 36.3 mmHg (35-45); PO2 Arterial 79.6 mmHg (80-100); pH Blood Arterial 7.52 (7.35-7.45)
--- NOTE | 2021-06-03 16:38 | NUR ---
SHIFT SUMMARY PT IS AO WITH CONFUSION. PT MEDICATED X1 FOR ANXIETY. PT C/O SOB. PT DENIES PAIN, N/V. PT REMAINS ON AIRVO INTERMITTENTLY ON BIPAP. CXR SHOWS PNEUMOMEDIASTINUM. PT TO SEE CT FOR PE STUDY THIS ISHAN. PT SATS REMAIN MID 80S-90S WITH PT REFUSING SOME CARE. PT IS ON BEDREST WITH [facility]. PT APPETITE IS MODERATE. PT IS IN BED, CALL LIGHT IN REACH, LOW POSITION.
[2021-06-04 07:57] LABS: BASOPHILS ABSOLUTE AUTO 0.06 K/mm3 (0.00-0.23); BASOPHILS PERCENT AUTO 0 % (0-2); EOSINOPHILS PERCENT AUTO 0 % (0-6); Hematocrit 27.9 % (33.0-51.0); Hemoglobin 9.4 g/dL (11.5-16.0); IMMATURE GRAN ABSOLUTE AUTO 1.46 K/mm3 (0.00-0.10); IMMATURE GRAN PERCENT AUTO 7 % (0-1); LYMPHOCYTES ABSOLUTE AUTO 0.77 K/mm3 (0.84-5.20); LYMPHOCYTES PERCENT AUTO 4 % (21-46); MONOCYTES PERCENT AUTO 4 % (4-13); Mean Corpuscular HGB 29.4 pg (26.0-34.0); Mean Corpuscular HGB Conc 33.7 g/dL (31.5-36.5); Mean Corpuscular Volume 87 fL (80-100); Mean Platelet Volume 9.5 fL (9.1-12.4); NEUTROPHILS ABSOLUTE AUTO 17.41 K/mm3 (1.96-9.15); NEUTROPHILS PERCENT AUTO 85 % (41-73); NRBC ABSOLUTE 0.12 K/mm3 (0.00-0.02); NRBC Auto 0.6 /100 WBC (0.0-0.2); Platelet Count 361 K/mm3 (150-400); RDW Coefficient Variation 15.1 % (11.7-14.2); RDW Standard Deviation 45.6 fL (35.1-46.3)
--- NOTE | 2021-06-04 08:03 | NUR ---
PT WITH EMOTIONAL LABILITY. PT GROWS ANXIOUS, AND WITH DE-SAT WITH AGGITATION. FREQUENTLY CALLS WITH MANY REQUESTS AND WILL BECOME ANGRY. AT BEGINNING OF SHIFT, PT WAS FIXATED ON HAVING CHANGES MADE TO HER AIR-VO. IF SHE FELT THE CORRECT CHANGES WERE NOT MADE, THEN SHE WOULD YELL OUT AT STAFF MEMBERS IN ANGER. CHARGE NURSE INTERVENED. PT WAS MUCH MORE RESPECTFUL DURING THE LATER PART OF THE SHIFT.
[2021-06-04 08:12] LABS: Alanine Aminotransfer (ALT/SGP 67 U/L (12-78); Albumin, Blood 2.5 g/dL (3.4-5.0); Albumin/Globulin Ratio 0.8 (0.8-1.8); Alk Phos 80 U/L (50-136); Anion Gap 7 mmol/L (6-16); Aspartate Aminotrans (AST/SGOT 26 U/L (12-37); Bilirubin, Total 0.8 mg/dL (0.1-1.0); Blood Urea Nitrogen 20 mg/dL (8-24); Bun/Creatinine Ratio 32.6 (12.0-20.0); CO2, Blood 28 mmol/L (21-32); Calcium, Blood 8.5 mg/dL (8.5-10.1); Chloride, Blood 103 mmol/L (98-108); Creatinine, Blood 0.61 mg/dL (0.40-1.00); Globulin, Blood 3.3 g/dL (2.2-4.0); Glomerular Filtration Rate >60 (60-); Glucose, Blood 153 mg/dL (70-99); Potassium, Blood 4.4 mmol/L (3.5-5.5); Sodium, Blood 138 mmol/L (136-145); Total Protein, Blood 5.8 g/dL (6.4-8.2)
--- NOTE | 2021-06-04 20:01 | NUR ---
SHIFT SUMMARY: PATIENT QUITE ANXIOUS THIS MORNING, PANICKING AT TIMES. WANTED CONSTANT NURISNG PRESENCE IN HER ROOM. BY THIS AFTERNOON, BEHAVIOR HAD CALMED DOWN A BIT, ATIVAN GIVEN. ON AIRVO 50L/80% WITH OXIMETRY READING AVG 92%, BUT DESATS LOW 75% WHEN TALKING AND IS ANXIOUS. HAS TO BE REMINDED TO CALM HER BREATHING AND STOP TALKING. GETTING UP TO BSC FREQUENTLY, OFTEN INDEPENDENTLY. SCD'S IN PLACE. TYLENOL GIVEN FOR C/O CHEST DISCOMFORT WITH GOOD EFFECT.
[2021-06-05 06:09] LABS: BASOPHILS ABSOLUTE AUTO 0.03 K/mm3 (0.00-0.23); BASOPHILS PERCENT AUTO 0 % (0-2); EOSINOPHILS ABSOLUTE AUTO 0.01 K/mm3 (0.00-0.68); EOSINOPHILS PERCENT AUTO 0 % (0-6); Hematocrit 27.1 % (33.0-51.0); Hemoglobin 8.8 g/dL (11.5-16.0); IMMATURE GRAN ABSOLUTE AUTO 0.89 K/mm3 (0.00-0.10); IMMATURE GRAN PERCENT AUTO 5 % (0-1); LYMPHOCYTES ABSOLUTE AUTO 0.49 K/mm3 (0.84-5.20); LYMPHOCYTES PERCENT AUTO 3 % (21-46); MONOCYTES ABSOLUTE AUTO 0.57 K/mm3 (0.16-1.47); MONOCYTES PERCENT AUTO 3 % (4-13); Mean Corpuscular HGB 29.2 pg (26.0-34.0); Mean Corpuscular HGB Conc 32.5 g/dL (31.5-36.5); Mean Corpuscular Volume 90 fL (80-100); Mean Platelet Volume 9.7 fL (9.1-12.4); NEUTROPHILS ABSOLUTE AUTO 15.59 K/mm3 (1.96-9.15); NEUTROPHILS PERCENT AUTO 89 % (41-73); NRBC ABSOLUTE 0.08 K/mm3 (0.00-0.02); NRBC Auto 0.5 /100 WBC (0.0-0.2); Platelet Count 327 K/mm3 (150-400); RDW Coefficient Variation 15.9 % (11.7-14.2); Red Blood Cell Count 3.01 M/mm3 (3.80-5.20); White Blood Cell Count 17.58 K/mm3 (4.00-11.30)
[2021-06-05 06:38] LABS: Alanine Aminotransfer (ALT/SGP 71 U/L (12-78); Albumin, Blood 2.2 g/dL (3.4-5.0); Albumin/Globulin Ratio 0.7 (0.8-1.8); Alk Phos 85 U/L (50-136); Anion Gap 8 mmol/L (6-16); Aspartate Aminotrans (AST/SGOT 23 U/L (12-37); Bilirubin, Total 0.7 mg/dL (0.1-1.0); Blood Urea Nitrogen 21 mg/dL (8-24); Bun/Creatinine Ratio 38.4 (12.0-20.0); CO2, Blood 28 mmol/L (21-32); Calcium, Blood 8.6 mg/dL (8.5-10.1); Chloride, Blood 103 mmol/L (98-108); Creatinine, Blood 0.55 mg/dL (0.40-1.00); Globulin, Blood 3.1 g/dL (2.2-4.0); Glomerular Filtration Rate >60 (60-); Glucose, Blood 193 mg/dL (70-99); Potassium, Blood 4.6 mmol/L (3.5-5.5); Sodium, Blood 139 mmol/L (136-145); Total Protein, Blood 5.3 g/dL (6.4-8.2)
--- NOTE | 2021-06-05 07:21 | NUR ---
SHIFT SUMMARY VSS, NO ACUTE CHANGES. PSYCHOSOCIAL: PT HAD SOME SEVERE AGGITATION AND A PANIC ATTACK AT THE BEGINNING OF THE NOC SHIFT. SHE WILL DE-SAT TO 78-82% WITH ANXIETY, AND WILL RE-SAT IF SHE STOPS TALKING AND FOCUSES ON RECOVERING AND DEEP BREATHING. THROUGH OUT THE NIGHT, SHE TRANSFERRED HERSELF FROM BED TO THE BSC AND BACK. USED THE AIRVO AT 50L/80%.
--- NOTE | 2021-06-05 20:58 | NUR ---
SHIFT SUMMARY: C/O CHEST DISCOMFORT "UP TO MY FACE AND NECK."; DR LOPEZ NOTIFIED, ORDERS RECEIVED. TROPONINS WNL. VERY ANXIOUS, DEMANDING, INSISTING THAT HER AIRVO DEVICE IS NOT FUNCTIONING PROPERLY. AIRVO @ 50L/80% O2, SATS WHEN QUIET ARE 93-96%; DESATS TO MID 70'S WHEN TALKING OR HAVING ANXIETY ISSUES. APPETITE OK. HAD CALLED RAPID RESPONSE HOTLINE SEVERAL TIMES TODAY, TELLING COVERSTITCH MACHINE OPERATOR THAT SHE "NEEDED A RAPID REPSONSE IN HERE. I NEED A TEAM!." NO CHANGE TO ABDOMINAL BRUISING. GETS OOB WITHOUT WAITING FOR ASSISTANCE.
[2021-06-06 03:40] LABS: BASOPHILS ABSOLUTE AUTO 0.04 K/mm3 (0.00-0.23); BASOPHILS PERCENT AUTO 0 % (0-2); EOSINOPHILS ABSOLUTE AUTO 0.02 K/mm3 (0.00-0.68); EOSINOPHILS PERCENT AUTO 0 % (0-6); Hematocrit 29.7 % (33.0-51.0); Hemoglobin 9.6 g/dL (11.5-16.0); IMMATURE GRAN ABSOLUTE AUTO 0.79 K/mm3 (0.00-0.10); IMMATURE GRAN PERCENT AUTO 4 % (0-1); LYMPHOCYTES ABSOLUTE AUTO 0.49 K/mm3 (0.84-5.20); LYMPHOCYTES PERCENT AUTO 3 % (21-46); MONOCYTES ABSOLUTE AUTO 0.41 K/mm3 (0.16-1.47); MONOCYTES PERCENT AUTO 2 % (4-13); Mean Corpuscular HGB 29.3 pg (26.0-34.0); Mean Corpuscular HGB Conc 32.3 g/dL (31.5-36.5); Mean Corpuscular Volume 91 fL (80-100); Mean Platelet Volume 9.4 fL (9.1-12.4); NEUTROPHILS ABSOLUTE AUTO 17.75 K/mm3 (1.96-9.15); NEUTROPHILS PERCENT AUTO 91 % (41-73); NRBC ABSOLUTE 0.06 K/mm3 (0.00-0.02); NRBC Auto 0.3 /100 WBC (0.0-0.2); Platelet Count 317 K/mm3 (150-400); RDW Coefficient Variation 16.1 % (11.7-14.2); RDW Standard Deviation 48.3 fL (35.1-46.3); Red Blood Cell Count 3.28 M/mm3 (3.80-5.20)
[2021-06-06 04:02] LABS: Alanine Aminotransfer (ALT/SGP 84 U/L (12-78); Albumin, Blood 2.4 g/dL (3.4-5.0); Albumin/Globulin Ratio 0.8 (0.8-1.8); Alk Phos 94 U/L (50-136); Anion Gap 7 mmol/L (6-16); Aspartate Aminotrans (AST/SGOT 31 U/L (12-37); Bilirubin, Total 0.9 mg/dL (0.1-1.0); Blood Urea Nitrogen 22 mg/dL (8-24); Bun/Creatinine Ratio 37.9 (12.0-20.0); CO2, Blood 27 mmol/L (21-32); Calcium, Blood 8.5 mg/dL (8.5-10.1); Chloride, Blood 103 mmol/L (98-108); Creatinine, Blood 0.58 mg/dL (0.40-1.00); Globulin, Blood 3.2 g/dL (2.2-4.0); Glomerular Filtration Rate >60 (60-); Glucose, Blood 179 mg/dL (70-99); Potassium, Blood 4.6 mmol/L (3.5-5.5); Sodium, Blood 137 mmol/L (136-145); Total Protein, Blood 5.6 g/dL (6.4-8.2)
--- NOTE | 2021-06-06 07:01 | NUR ---
SHIFT SUMMARY PT HAD A GOOD SHIFT TONIGHT, WAS ABLE TO SLEEP WELL. REFUSED HER SEROQUEL LAST NIGHT, BUT DID NOT CALL MUCH THIS SHIFT OR EXHIBIT ANY AGGITATION. WILL CONTINUE TO MONITOR AND GIVE REPORT TO ONCOMING DAY SHIFT NURSE. SUBQ AIR IS PALPABLE. FURTHER DIAGNOSTIC STUDIES PLANNED FOR TODAY.
--- NOTE | 2021-06-06 09:19 | NUR ---
Echocardiogram performed.
--- NOTE | 2021-06-06 09:50 | NUR ---
Update 06/06/21: Patient's condition worsened during the course of the day yesterday. Pulmonology consult requested by Dr. Acevedo. Echocardiogram ordered and completed this am. Chest XR ordered and completed this am. Pt. declining DVT prophylaxis. ASA added yesterday. Per chart review, pt. having quite a bit of anxiety throughout the weekend. Refused seroquel last night. O2 flow rate NC 60 at 90% SPO2. No anticipated discharge at this time. When appropriate for discharge, anticipated needs to include Oxygen from [facility] and [facility].
--- NOTE | 2021-06-06 18:49 | NUR ---
SHIFT SUMMARY PT AxOx4. PLEASANT AND COOPERATIVE WITH CARE. PT COVID + ON AIRVO AT 50LPM. PT HAD ECHO AND CXR TODAY AND PULMONOLOGY CONSULT. PT HAD SOME ANXIOUS BEHAVIOR THIS SHIFT. PT RESPONDED WELL TO THERAPEUTIC COMMUNICATION AND PHARMACEUTICAL MEDICATION, HOME REGIMEN. PT REPORTED FACIAL PRESSURE AND REQUESTED TYLENOL x1 TODAY. VITAL SIGNS REVIEWED. PT CURRENTLY RESTING IN BED WITH CALL LIGHT IN REACH. DENIES ANY NEEDS AT THIS TIME.
[2021-06-07 05:27] LABS: BASOPHILS ABSOLUTE AUTO 0.03 K/mm3 (0.00-0.23); BASOPHILS PERCENT AUTO 0 % (0-2); EOSINOPHILS ABSOLUTE AUTO 0.01 K/mm3 (0.00-0.68); EOSINOPHILS PERCENT AUTO 0 % (0-6); Hematocrit 31.7 % (33.0-51.0); Hemoglobin 10.4 g/dL (11.5-16.0); IMMATURE GRAN ABSOLUTE AUTO 0.63 K/mm3 (0.00-0.10); IMMATURE GRAN PERCENT AUTO 3 % (0-1); LYMPHOCYTES ABSOLUTE AUTO 0.58 K/mm3 (0.84-5.20); LYMPHOCYTES PERCENT AUTO 3 % (21-46); MONOCYTES ABSOLUTE AUTO 0.43 K/mm3 (0.16-1.47); MONOCYTES PERCENT AUTO 2 % (4-13); Mean Corpuscular HGB 29.5 pg (26.0-34.0); Mean Corpuscular HGB Conc 32.8 g/dL (31.5-36.5); Mean Corpuscular Volume 90 fL (80-100); Mean Platelet Volume 9.1 fL (9.1-12.4); NEUTROPHILS PERCENT AUTO 91 % (41-73); NRBC ABSOLUTE 0.07 K/mm3 (0.00-0.02); NRBC Auto 0.4 /100 WBC (0.0-0.2); Platelet Count 309 K/mm3 (150-400); RDW Coefficient Variation 16.7 % (11.7-14.2); RDW Standard Deviation 50.5 fL (35.1-46.3); Red Blood Cell Count 3.53 M/mm3 (3.80-5.20); White Blood Cell Count 19.38 K/mm3 (4.00-11.30)
[2021-06-07 06:01] LABS: Anion Gap 7 mmol/L (6-16); Blood Urea Nitrogen 24 mg/dL (8-24); Bun/Creatinine Ratio 41.4 (12.0-20.0); CO2, Blood 28 mmol/L (21-32); Chloride, Blood 102 mmol/L (98-108); Creatinine, Blood 0.58 mg/dL (0.40-1.00); Glomerular Filtration Rate >60 (60-); Glucose, Blood 171 mg/dL (70-99); Potassium, Blood 4.4 mmol/L (3.5-5.5); Sodium, Blood 137 mmol/L (136-145)
--- NOTE | 2021-06-07 06:35 | NUR ---
SHIFT SUMMARY NO ACCUTE CHANGES THIS SHIFT, PT EXPRESSED FRUSTRATION ABOUT MED ORDERS, REQUESTS FLEXARIL BE SCHED & CONCERNED ABOUT NOT RECEIVING HER CONCERTA, SLEEPING AT THIS TIME, CALL LIGHT IN REACH, WILL CONT TO MONITOR UNTIL REPORT GIVEN TO DAY RN.
--- NOTE | 2021-06-07 09:14 | NUR ---
Update 06/07/21: Dr. Mayberry consulted regarding patient's care. Recommendation to resume DVT ppx. Received a phone call this am requesting that I visit pt. to discuss care and answer questions. I will plan to visit around 10 am.
--- NOTE | 2021-06-07 19:42 | NUR ---
SHIFT SUMMARY PT UP ON SIDE OF BED OR CHAIR SEVERAL TIMES TODAY. HAS MANY QUESTIONS ABOUT MEDS AND WHY SHE IS AND ISN'T GETTING CERTAIN THINGS THIS MORNING. TALKS A LOT WHEN IN ROOM AND SATS DROP BUT RECOVERS QUICKLY WHEN SHE STOPS TALKING. PERAMETERS FOR AIRVO CHANGED THIS AFTERNOON BY RT. CONTINUOUS PULSE OX ON. FREQUENTLY FORGETS WHAT HAS BEEN DISCUSSED WHILE IN ROOM.
--- NOTE | 2021-06-08 04:20 | NUR ---
SHIFT SUMMARY PT IS VERY ANXIOUS THIS SHIFT. PT WANTS THINGS DONE A CERTAIN WAY, AND IF IT ISN'T DONE THE WAY SHE WANTS IT DONE PT BECOMES VERY UPSET WITH STAFF. PT BECAME UPSET WITH RESPIRATORY BECAUSE SHE WANTED THE FLUIDS ON HER AIRVO CHANGED DESPITE THERE STILL BEING ENOUGH FLUID IN THE BAG FOR THE HEATED HIGH FLOW. PT BECAME AGIATED WITH RT AND STATED SHE WOULD CALL A RAPID RESPONSE IF THE BAG WERE NOT CHANGED. AFTER SPEAKING WITH THE CHARGE NURSE SHE BECAME MUCH MORE CALM AND AGREEABLE. PT INITALLY REFUSED TO TAKE HER SEROQUELL BUT DECIDED TO TAKE A FRACTION OF THE DOSE 25MG OF THE 100MG PRESCRIBED. THIS SEEMED TO HELP ALLEVIATE SOME OF PT ANXIETY AND SHE WAS ABLE TO GET SOME SLEEP. PT TOLERATING AIRVO PER RT SETTINGS. SATS IN THE 90'S. PT A SBA UP OOB, DESATS WITH EXERTION BUT RECOVERS WELL. NO ACUTE CHANGES OVERNIGHT. BED IN LOWEST POSITION, CALL LIGHT WITHIN REACH.
[2021-06-08 05:50] LABS: Alanine Aminotransfer (ALT/SGP 68 U/L (12-78); Albumin, Blood 2.5 g/dL (3.4-5.0); Albumin/Globulin Ratio 0.8 (0.8-1.8); Alk Phos 94 U/L (50-136); Anion Gap 6 mmol/L (6-16); Aspartate Aminotrans (AST/SGOT 18 U/L (12-37); Bilirubin, Total 0.9 mg/dL (0.1-1.0); Blood Urea Nitrogen 25 mg/dL (8-24); Bun/Creatinine Ratio 43.7 (12.0-20.0); CO2, Blood 28 mmol/L (21-32); Calcium, Blood 8.3 mg/dL (8.5-10.1); Chloride, Blood 103 mmol/L (98-108); Creatinine, Blood 0.57 mg/dL (0.40-1.00); Globulin, Blood 3.1 g/dL (2.2-4.0); Glomerular Filtration Rate >60 (60-); Glucose, Blood 191 mg/dL (70-99); Potassium, Blood 4.5 mmol/L (3.5-5.5); Sodium, Blood 137 mmol/L (136-145); Total Protein, Blood 5.6 g/dL (6.4-8.2)
--- NOTE | 2021-06-08 16:56 | NUR ---
Update 06/08/21: Contacted patient's son Marlo to provide an update regarding her condition and care. Also reviewed potential discharge needs. Pt. seems very anxious to decrease her need for oxygen and return home. Has been resistant to taking seroquel and it is noted that she has been very demanding. Pt. is also concerned regarding finances. I will gather financial resource information for pt. as well as list of caregivers in the area. She will likely need to request help from her sign in securing a caregiver. Plan to continue to work towards meeting patient's social needs prior to discharge.
--- NOTE | 2021-06-08 17:24 | NUR ---
SHIFT SUMMARY PT HAS BEEN ANXIOUS ON AND OFF THROUGHOUT DAY. R.T. CHANGED BIPAP/AIRVO MACHINE OUT FOR A STAIGHT AIRVO APPROX NOONTIME. STATED SHE THOUGHT IT WAS WORKING GREAT AT THE TIME, BETTER THAN THE PREVIOUS MACHINE. APPROX 1400 PT BECAME PANICKY SAYING THE PRESSURE WAS TOO HIGH AND SHE DIDN'T FEEL LIKE SHE NEEDED TO BREATHE HARD ANYMORE. R.T CAME BACK IN AND CHANGED HER TO AN OXIMIZER AT 13L/M. A SHORT TIME LATER PT CONTINUED TO THROW HERSELF AROUND IN THE BED SAYING SHE FELT LIKE SHE WAS GOING TO PASS OUT. THE MACHINE HAD BEEN PUSHING TOO MUCH AIR IN AGAIN AND SHE WAS FULL OF AIR FROM HER CHEST UP AROUND HER NECK AGAIN AND THAT SHE HAS HAD A TERRIBLE SETBACK. CALMED PT DOWN AND THEN WAS ABLE TO UNDERSTAND HER EXPLANATION OF CREPITUS AROUND HER CHEST, NECK AND BACK. RUBBED AREAS FOR PT AND SHE REPORTED IT STARTING TO FEEL MUCH BETTER. ABLE TO LAY BACK DOWN. SATS LOW TO MID 90'S ON 13L/M OXIMIZER. LOWERED TO 11L/M AND SHE HAS REMAINED IN THE SAME RANGE. DROPS TO LOW 80'S WHEN SHE REMOVES THE O2. WILL REPORT CONDITION TO ONCOMING SHIFT.
--- NOTE | 2021-06-09 04:00 | NUR ---
SHIFT SUMMARY PATIENT HAD NO ACUTE CHANGES. AXOX 3 AND INDEPENDENT TO BSC. ON OXIMIZER 14L O2. CBG 155. VSS/AFEBRILE. DENIES PAIN AND N/V. TRAZODONE 50 MG GIVEN FOR INSOMNIA AND FLEXERIL 10 MG FOR MUSCLE SPASMS. CALL LIGHT IN REACH. BED IN LOWEST POSITION. WILL CONTINUE TO MONITOR UNTIL DAY SHIFT NURSE ASSUMES CARE.
[2021-06-09 08:33] LABS: BASOPHILS ABSOLUTE AUTO 0.04 K/mm3 (0.00-0.23); BASOPHILS PERCENT AUTO 0 % (0-2); EOSINOPHILS ABSOLUTE AUTO 0.02 K/mm3 (0.00-0.68); EOSINOPHILS PERCENT AUTO 0 % (0-6); Hemoglobin 10.2 g/dL (11.5-16.0); IMMATURE GRAN ABSOLUTE AUTO 0.26 K/mm3 (0.00-0.10); IMMATURE GRAN PERCENT AUTO 2 % (0-1); LYMPHOCYTES PERCENT AUTO 5 % (21-46); MONOCYTES ABSOLUTE AUTO 0.37 K/mm3 (0.16-1.47); MONOCYTES PERCENT AUTO 3 % (4-13); Mean Corpuscular HGB 29.6 pg (26.0-34.0); Mean Corpuscular HGB Conc 31.9 g/dL (31.5-36.5); Mean Corpuscular Volume 93 fL (80-100); Mean Platelet Volume 9.4 fL (9.1-12.4); NEUTROPHILS ABSOLUTE AUTO 12.56 K/mm3 (1.96-9.15); NEUTROPHILS PERCENT AUTO 90 % (41-73); NRBC ABSOLUTE 0.04 K/mm3 (0.00-0.02); NRBC Auto 0.3 /100 WBC (0.0-0.2); Platelet Count 245 K/mm3 (150-400); RDW Coefficient Variation 17.8 % (11.7-14.2); RDW Standard Deviation 56.1 fL (35.1-46.3); Red Blood Cell Count 3.45 M/mm3 (3.80-5.20); White Blood Cell Count 13.95 K/mm3 (4.00-11.30)
[2021-06-09 08:42] LABS: Alanine Aminotransfer (ALT/SGP 58 U/L (12-78); Albumin, Blood 2.5 g/dL (3.4-5.0); Albumin/Globulin Ratio 0.8 (0.8-1.8); Alk Phos 86 U/L (50-136); Anion Gap 5 mmol/L (6-16); Aspartate Aminotrans (AST/SGOT 17 U/L (12-37); Bilirubin, Total 0.8 mg/dL (0.1-1.0); Blood Urea Nitrogen 23 mg/dL (8-24); Bun/Creatinine Ratio 38.5 (12.0-20.0); CO2, Blood 31 mmol/L (21-32); Calcium, Blood 8.5 mg/dL (8.5-10.1); Chloride, Blood 101 mmol/L (98-108); Globulin, Blood 3.1 g/dL (2.2-4.0); Glomerular Filtration Rate >60 (60-); Glucose, Blood 141 mg/dL (70-99); Potassium, Blood 4.3 mmol/L (3.5-5.5); Sodium, Blood 137 mmol/L (136-145); Total Protein, Blood 5.6 g/dL (6.4-8.2)
--- NOTE | 2021-06-09 13:15 | NUR ---
CREPITUS PRESNT TO BILATERAL SHOULDERS, UPPER CHEST, UPPER BACK. DR SANTOYO NOTIFIED AND WAS ALREADY AWARE. TELEPHONE ORDER FOR CXR RECIEVED
--- NOTE | 2021-06-10 02:09 | NUR ---
06/09/212048 Pt right eye lid is swollen. No redness to rt eye, no drainage, face seems swollen but pt able to open eye just barely. It bothers her, encouraged pt to not rub it. Primary nurse notified.
--- NOTE | 2021-06-10 03:28 | NUR ---
SHIFT SUMMARY PATIENT HAD NO ACUTE CHANGES OBSERVED. AXO X 3 AND INDEPENDENT TO BSC. CBG 118. POWERGLIDE [place] INTACT. ON 12L OXIMIZER. VSS/AFEBRILE. FLEXERIL GIVEN FOR MUSCLE SPASM AND TRAZADONE FOR INSOMNIA. CALL LIGHT IN REACH. BED IN LOWEST POSITION. WILL CONTINUE TO MONITOR UNTIL DAY SHIFT NURSE ASSUMES CARE.
[2021-06-10 05:31] LABS: BASOPHILS ABSOLUTE AUTO 0.03 K/mm3 (0.00-0.23); BASOPHILS PERCENT AUTO 0 % (0-2); EOSINOPHILS ABSOLUTE AUTO 0.03 K/mm3 (0.00-0.68); EOSINOPHILS PERCENT AUTO 0 % (0-6); Hematocrit 32.4 % (33.0-51.0); Hemoglobin 10.7 g/dL (11.5-16.0); IMMATURE GRAN ABSOLUTE AUTO 0.17 K/mm3 (0.00-0.10); IMMATURE GRAN PERCENT AUTO 1 % (0-1); LYMPHOCYTES ABSOLUTE AUTO 0.61 K/mm3 (0.84-5.20); LYMPHOCYTES PERCENT AUTO 5 % (21-46); MONOCYTES ABSOLUTE AUTO 0.36 K/mm3 (0.16-1.47); MONOCYTES PERCENT AUTO 3 % (4-13); Mean Corpuscular HGB 30.2 pg (26.0-34.0); Mean Corpuscular Volume 92 fL (80-100); Mean Platelet Volume 9.1 fL (9.1-12.4); NEUTROPHILS ABSOLUTE AUTO 11.01 K/mm3 (1.96-9.15); NEUTROPHILS PERCENT AUTO 90 % (41-73); NRBC ABSOLUTE 0.02 K/mm3 (0.00-0.02); NRBC Auto 0.2 /100 WBC (0.0-0.2); Platelet Count 213 K/mm3 (150-400); RDW Coefficient Variation 18.1 % (11.7-14.2); RDW Standard Deviation 57.9 fL (35.1-46.3); Red Blood Cell Count 3.54 M/mm3 (3.80-5.20); White Blood Cell Count 12.21 K/mm3 (4.00-11.30)
[2021-06-10 05:59] LABS: Alanine Aminotransfer (ALT/SGP 59 U/L (12-78); Albumin, Blood 2.6 g/dL (3.4-5.0); Albumin/Globulin Ratio 0.9 (0.8-1.8); Alk Phos 83 U/L (50-136); Anion Gap 3 mmol/L (6-16); Aspartate Aminotrans (AST/SGOT 16 U/L (12-37); Bilirubin, Total 0.9 mg/dL (0.1-1.0); Blood Urea Nitrogen 23 mg/dL (8-24); Bun/Creatinine Ratio 35.9 (12.0-20.0); CO2, Blood 33 mmol/L (21-32); Calcium, Blood 8.2 mg/dL (8.5-10.1); Chloride, Blood 101 mmol/L (98-108); Creatinine, Blood 0.64 mg/dL (0.40-1.00); Glomerular Filtration Rate >60 (60-); Glucose, Blood 134 mg/dL (70-99); Potassium, Blood 4.2 mmol/L (3.5-5.5); Sodium, Blood 137 mmol/L (136-145); Total Protein, Blood 5.6 g/dL (6.4-8.2)
--- NOTE | 2021-06-10 18:02 | NUR ---
SHIFT SUMMARY TOLERATING WEANING. ON 10L VIA OXIMIZER. DESATS WITH ACTIVITY TO LOW ~78% AT TIMES, IF PATIENT MOVES SLOWLY DESATS TO ~88% ONLY. COACHED TO TAKE ACTIVITY SLOWLY, DEEP BREATHE, AND LIMIT TALKING DURING EXERTION.
--- NOTE | 2021-06-11 03:29 | NUR ---
SURGERY NURSE SUMMARY CONTINUOUS O2 SATS/PULSE OX ON. HAS BEEN RESTINGQUIETLY WITH A FEW INTERRUPTIONS IN PRONE POSITION AND SATS HAVE BEEN IN THE 90'S. AWAKE AND UP TO THE BEDSIDE COMMODE ONCE AND HER SATS DECREASED INTO THE 70'S. ASSISTED BACK TO BED AND SATS RETURNED TO THE 90'S. CALL LIGHT IN REACH. ISOLATOIN PRECAUTIONS MAINTAINED
[2021-06-11 06:45] LABS: BASOPHILS ABSOLUTE AUTO 0.01 K/mm3 (0.00-0.23); BASOPHILS PERCENT AUTO 0 % (0-2); EOSINOPHILS ABSOLUTE AUTO 0.04 K/mm3 (0.00-0.68); EOSINOPHILS PERCENT AUTO 0 % (0-6); Hematocrit 33.2 % (33.0-51.0); Hemoglobin 10.8 g/dL (11.5-16.0); IMMATURE GRAN PERCENT AUTO 1 % (0-1); LYMPHOCYTES ABSOLUTE AUTO 0.72 K/mm3 (0.84-5.20); LYMPHOCYTES PERCENT AUTO 8 % (21-46); MONOCYTES ABSOLUTE AUTO 0.36 K/mm3 (0.16-1.47); MONOCYTES PERCENT AUTO 4 % (4-13); Mean Corpuscular HGB 30.2 pg (26.0-34.0); Mean Corpuscular HGB Conc 32.5 g/dL (31.5-36.5); Mean Corpuscular Volume 93 fL (80-100); Mean Platelet Volume 9.3 fL (9.1-12.4); NEUTROPHILS ABSOLUTE AUTO 8.23 K/mm3 (1.96-9.15); NEUTROPHILS PERCENT AUTO 87 % (41-73); Platelet Count 184 K/mm3 (150-400); RDW Coefficient Variation 18.3 % (11.7-14.2); RDW Standard Deviation 59.1 fL (35.1-46.3); Red Blood Cell Count 3.58 M/mm3 (3.80-5.20); White Blood Cell Count 9.46 K/mm3 (4.00-11.30)
[2021-06-11 07:14] LABS: Anion Gap 3 mmol/L (6-16); Blood Urea Nitrogen 23 mg/dL (8-24); Bun/Creatinine Ratio 39.5 (12.0-20.0); CO2, Blood 33 mmol/L (21-32); Calcium, Blood 8.1 mg/dL (8.5-10.1); Chloride, Blood 102 mmol/L (98-108); Creatinine, Blood 0.58 mg/dL (0.40-1.00); Glomerular Filtration Rate >60 (60-); Glucose, Blood 117 mg/dL (70-99); Potassium, Blood 4.1 mmol/L (3.5-5.5); Sodium, Blood 138 mmol/L (136-145)
--- NOTE | 2021-06-11 19:15 | NUR ---
PT REMAINS ALERT AND ORIENTED X4, MAKING NO COMPLAINTS AT THIS TIME. PT WOULD LIKE TO BE ALLOWED TO RECOUP AFTER DECOMP IN O2 SATS ON HER OWN. PT WAS EDUCATED AND ASSURED THAT PROPPER CARE WOULD TAKE PLACE WITH O2 DELIVERY. PT IV IS WNL. BED IN LOW POSITIONA ND CALL LIGHT WITHIN REACH. STAFF WILL CONT. TO MONITOR.
--- NOTE | 2021-06-12 04:15 | NUR ---
FORM DESIGNER SUMMARY CONTINUES ON O2 SUPPLEMENT PER 6L/OXYMIZER AND INTERMITTENT RESP TREATMENTS. BUT O2 PER LITER IS DECREASED COMPARED TO THAT OF 24 HR AGO. PT VOICED FOCUS ON GETTING BETTER AND WEANING OFF O2 SO SHE COULD GO HOME SOON. VOICED NOT TO "GET SCARED" IF HER O2 SATS DROPPED WHEN SHE GOT OUT OF BED TO VOID, THAT THEY WOULD IMPROVE WHEN SHE GET BACK INTO BED. AND IF THEY DROPPED TO FEEL FREE TO WAKE HER UP TO ADDRESS THE SITUATION IF NEEDED. CURRENT O2 SATS: 100% AND HR 73. ISOLATION PRECAUTIONS MAINTAINED. CALL LIGHT IN REACH
[2021-06-12 06:34] LABS: Anion Gap 3 mmol/L (6-16); Blood Urea Nitrogen 27 mg/dL (8-24); Bun/Creatinine Ratio 47.6 (12.0-20.0); CO2, Blood 31 mmol/L (21-32); Calcium, Blood 7.7 mg/dL (8.5-10.1); Chloride, Blood 104 mmol/L (98-108); Creatinine, Blood 0.57 mg/dL (0.40-1.00); Glomerular Filtration Rate >60 (60-); Glucose, Blood 179 mg/dL (70-99); Sodium, Blood 138 mmol/L (136-145)
--- NOTE | 2021-06-12 18:44 | NUR ---
NO INCREASED O2 NEEDS THIS SHIFT. NO COMPLAINTS. STAFF WILL CONT. TO MONITOR.
--- NOTE | 2021-06-13 03:47 | NUR ---
CUSTOMER SOLUTIONS TEAMMATE SUMMARY AWAKE AT INTERVALS THROUGHOUT SHIFT. O2 AT 6 L/MIN PER OXYMIZER. CONTINUOUS PULSE OX VARIES BETWEEN 89 - 94% WITH SOME EXCEPTIONS WHEN SHE GETS OUT OF BED TO USE COMMODE AND SATS DROP INTO LOW 80'S. EACH TIME SHE WAS ABLE TO GET SELF BACK INTO BED WITHOUT APPARENT DISTRESS. SATS THEN RETURNED TO 90'S. ISOLATION PRECAUTIONS MAINTAINED. CALL LIGHT IN REACH. SCD'S IN USE.
[2021-06-13 06:48] LABS: Anion Gap 5 mmol/L (6-16); Blood Urea Nitrogen 25 mg/dL (8-24); Bun/Creatinine Ratio 38.6 (12.0-20.0); CO2, Blood 29 mmol/L (21-32); Calcium, Blood 8.5 mg/dL (8.5-10.1); Chloride, Blood 105 mmol/L (98-108); Creatinine, Blood 0.65 mg/dL (0.40-1.00); Glomerular Filtration Rate >60 (60-); Glucose, Blood 178 mg/dL (70-99); Potassium, Blood 3.9 mmol/L (3.5-5.5); Sodium, Blood 139 mmol/L (136-145)
--- NOTE | 2021-06-13 14:48 | NUR ---
Provided spiritual care visit: patient is discouraged at having been here so long and is emotionally ready to go home. She is struggling to stay here longer and feels she is well enough to be discharged. I reassured her of the provider's concern for the best outcome for her. She thanked me for listening to her and allowing her to "vent".
--- NOTE | 2021-06-13 16:48 | NUR ---
ADMIT: 05/23/21 DISCHARGE: DX: Covid Pneumonia CC: [facility] CALL: pt at [phone] RESIDENCE: home by self CAREGIVER: Marlo argueta, Child, Pepe schneider, Child, DX: ADHD, Bipolar, COPD, DME: CPAP, Depends, Compression stockings, see list CCM: none HOME HEALTH: none SUMMARY: 06/13/21- per chart review with Dr. Cruz, pt is wanting to go home today but not medically stable today. Pt needs home O2 eval for oxygen, this was ordered today. Potentially d/c pt home tomorrow. Spoke with son, Marlo, who reports pt was independent, no caregivers or home health. Pt lives alone in [address] [place] [address] with 15-steps into the home with working utilities. There are some concerns but she usually picks up her son, who helps her get things into the home. Pt will need transportation home, son does not drive. Pt does still drive but son thinks she was brought in by ambulance. Son reports that CHRISTIAN is brother Pepe who lives in [place]. Son Marlo lives in [place]. Pt uses [facility] on [address] for pharmacy. Son does not think she has any needs for food or cleaning when she goes home. Discussed d/c plan, he acknowledged understanding.-romi
--- NOTE | 2021-06-13 17:02 | NUR ---
SUMMARY- PT A/O X4, UP IN CHAIR MOST OF THE DAY. OXYMIZER FROM 6L THIS AM DOWN TO 2L SATTING 96% DESATS LOWEST 88% WITH ACTIVITY. AMBULATING ALL ABOUT THE ROOM AND TAKES NECESSARY REST PERIODS. TOLERATING FOOD AND FLUID. EAGER TO GO HOME TOMORROW.
--- NOTE | 2021-06-14 06:15 | NUR ---
SHIFT SUMMARY PATIENT ALERT AND ORIENTED. NO COMPLAINTS OF PAIN OR SHORTNESS OF BREATH. NO ACUTE ISSUES NOTED OVERNIGHT. PATIENT IS EAGER TO GO HOME. CONTINUES ON 2 LITERS O2 VIA NASAL CANULA. CALL LIGHT WITHIN REACH. REPORT GIVEN TO ONCOMING RN.
[2021-06-14 06:21] LABS: Anion Gap 5 mmol/L (6-16); Blood Urea Nitrogen 25 mg/dL (8-24); Bun/Creatinine Ratio 44.6 (12.0-20.0); CO2, Blood 28 mmol/L (21-32); Calcium, Blood 8.4 mg/dL (8.5-10.1); Chloride, Blood 105 mmol/L (98-108); Creatinine, Blood 0.56 mg/dL (0.40-1.00); Glomerular Filtration Rate >60 (60-); Glucose, Blood 123 mg/dL (70-99); Sodium, Blood 138 mmol/L (136-145)
[2021-06-14] MEDS ORDERED: Acetaminophen650 M1 PO (12:52)
[2021-06-14] MEDS ORDERED: ASPI81CH PO (12:54)
[2021-06-14] MEDS ORDERED: GUAI600T33 PO (12:55)
[2021-06-14] MEDS ORDERED: METO50ER PO (12:57)
[2021-06-14] MEDS ORDERED: ZINC220 PO (12:58)
[2021-06-14] MEDS ORDERED: DEXA2 PO (12:59)
[2021-06-14] MEDS ORDERED: XARELTO20 MG PO (13:00)
--- NOTE | 2021-06-14 15:51 | NUR ---
DISCHARGE DISCHARGE INSTRUCTIONS, MEDICATION LIST AND FOLLOW UP APPOINTMENT REVIEWED WITH PT. QUESTIONS/CONCERNS ANSWERED. PT VERBALLY INDICATED UNDERTANDING OF ALL INSTRUCTIONS RECEIVED. PT TRANSPORTED HOME VIA [facility].
--- NOTE | 2021-06-14 15:53 | NUR ---
06/14/21- SPOKE WITH PT OVER THE PHONE. SHE WILL NEED TRANSPORTATION HOME, SHE WOULD LIKE TO USE [employer] FOR HOME HEALTH SERVICES. SHE WOULD LIKE RESOURCES FOR HIRING CAREGIVERS FOR HELP. PT NEEDS FWW, OXYGEN AND BEDSIDE COMMODE THROUGH [facility]. WAS ABLE TO SCHEDULE PT AN APPT FOR HOSPITAL F/U LATER THIS WEEK. PT REQUESTED THAT HER SON IN [place] BE UPDATED. PROVIDED PT WITH CONTACT INFORMATION FOR [employer] TO CALL ABOUT PAYING FOR CAREGIVERS. SHE IS ACTIVE WITH [employer]. CALLED AND UPDATED SON IN [place]. TRANSPORTATION SET UP AT 2PM. -[facility]
== END 2021-06-14 14:15 | disposition home or self-care (01) | DRG 177 ==
LOC: ER 13:52 → ERHOLD 18:18 → PCU 18:18 → MEDS 18:18 → PCU 22:02 → MEDS 06-02 14:40
PROVIDERS: Emergency Medicine; Family Medicine; Hospitalist; Internal Medicine; Student in an Organized Health Care Education/Training Program; ADMIT Family Medicine
PROC: 8E0ZXY6 Isolation (ICD-10-PCS; principal; 2021-05-23)
PROC: XW033E5 Introduction of Remdesivir Anti-infective into Peripheral Vein, Percutaneous Approach, New Technology Group 5 (ICD-10-PCS; 2021-05-23)
PROC: 3E0333Z Introduction of Anti-inflammatory into Peripheral Vein, Percutaneous Approach (ICD-10-PCS; 2021-05-23)
PROC: 5A0955A Assistance with Respiratory Ventilation, Greater than 96 Consecutive Hours, High Flow/Velocity Cannula (ICD-10-PCS; 2021-05-23)
DX: U07.1 COVID-19 (principal); J12.82 Pneumonia due to coronavirus disease 2019; J96.01 Acute respiratory failure with hypoxia; Z68.42 Body mass index [BMI] 45.0-49.9, adult; D62 Acute posthemorrhagic anemia; D68.32 Hemorrhagic disorder due to extrinsic circulating anticoagulants; I10 Essential (primary) hypertension; E78.5 Hyperlipidemia, unspecified; E66.01 Morbid (severe) obesity due to excess calories; M81.0 Age-related osteoporosis without current pathological fracture; G47.33 Obstructive sleep apnea (adult) (pediatric); M54.5 Low back pain; F10.20 Alcohol dependence, uncomplicated; E11.9 Type 2 diabetes mellitus without complications; T38.0X5A Adverse effect of glucocorticoids and synthetic analogues, initial encounter; R20.2 Paresthesia of skin; T45.515A Adverse effect of anticoagulants, initial encounter; R07.89 Other chest pain; G47.00 Insomnia, unspecified; F41.1 Generalized anxiety disorder; G89.29 Other chronic pain; J98.2 Interstitial emphysema; M79.81 Nontraumatic hematoma of soft tissue; Z98.891 History of uterine scar from previous surgery; Z88.1 Allergy status to other antibiotic agents; Z79.52 Long term (current) use of systemic steroids; Z79.899 Other long term (current) drug therapy
CPT/HCPCS: 36415; 36430; 36600; 71045; 71260; 74177; 80048; 80053; 82728; 82803; 82947; 83615; 83735; 84100; 84484; 85014; 85018; 85025; 85379; 86140; 86850; 86900; 86901; 86923; 93005; 93010; 93306; 94640; 94660; 94664; 94762; 96365; 96366; 96375; 97162; 97530; 99285-25; A9270; C1751; J1100; J1170; J1650; J1815; J2060; J2405; J2916; J2920; J2930; J3010; J7030; J7050; P9016; Q9967

== ENCOUNTER → 2021-12-16 | Outpatient (CLI) | payer MEDICARE, OTHER ==
[~2021-12-16] MED LIST changes: +ASPI81CH PO; +Acetaminophen650 M1 PO; +DEXA2 PO; +FAMO20 PO; +FLUTICASONE-SA1 EA11 INH; +GUAI600T33 PO; +KLONOPIN0.5 M3 PO; +METHYLPHENIDATE54 MG PO; +METO50ER PO; +PRAVASTATIN SOD20 MG PO; +XARELTO20 MG PO; +ZINC220 PO
[2021-12-17 13:28] LABS: Candida species (DNA Probe) Negative (NEGATIVE); G. vaginalis (DNA Probe) Negative (NEGATIVE); T. vaginalis (DNA Probe) Negative (NEGATIVE)
== END | disposition home or self-care (01) ==
LOC: LAB SHORT 17:44
PROVIDERS: Family Medicine
DX: N89.8 Other specified noninflammatory disorders of vagina (principal)
CPT/HCPCS: 87480; 87510; 87660

== ENCOUNTER 2022-09-06 12:48 | Day surgery (SDC) | payer OTHER ==
[~2022-09-06] VITALS: Ht 160 cm; Wt 125.2 kg
[~2022-09-06 12:48] MED LIST changes: +IPRAT-ALBUT 0.5-3 ML INH; +SYMBICORT 160-4.6 GM INH; +TRAZ100 PO
--- NOTE | 2022-09-06 16:36 | NUR ---
09/06/22 1636 [place] History, Chart, Medications and Allergies reviewed before start of procedure.MONITOR INTACT WITH CONTINUOUS PULSE OXIMETRY AND INTERMITTENT BP.3-LEAD EKG REVIEWED WITH PHYSICIAN PRIOR TO START OF PROCEDURE.O2 VIA POM INTACT THROUGHOUT SEDATION/PROCEDURE.
--- NOTE | 2022-09-06 18:12 | NUR ---
Patient up to Ambulate independently. Gait steady. Discharge instructions reviewed with patient. Patient verbalizes understanding. Copy given to patient to take home. Discharged via wheelchair to private car for ride home.
== END 2022-09-06 23:13 | disposition home or self-care (01) ==
LOC: ORSCMMR 12:48
PROVIDERS: Surgery
PROC: 0DBK8ZX Excision of Ascending Colon, Via Natural or Artificial Opening Endoscopic, Diagnostic (ICD-10-PCS; principal; 2022-09-06 15:30)
DX: Z12.11 Encounter for screening for malignant neoplasm of colon (principal); Z86.010 Personal history of colon polyps; D12.2 Benign neoplasm of ascending colon; K57.30 Diverticulosis of large intestine without perforation or abscess without bleeding; J44.9 Chronic obstructive pulmonary disease, unspecified; G47.33 Obstructive sleep apnea (adult) (pediatric); E66.01 Morbid (severe) obesity due to excess calories; Z68.42 Body mass index [BMI] 45.0-49.9, adult; E78.5 Hyperlipidemia, unspecified; Z79.899 Other long term (current) drug therapy; F43.10 Post-traumatic stress disorder, unspecified
CPT/HCPCS: 88305; J2250; J2370; J2704; J3010; J7120

== ENCOUNTER → 2023-02-01 | Outpatient (CLI) | payer OTHER | END | disposition home or self-care (01) | LOC: LAB SHORT 16:56 → LAB 16:56 | DX: L30.4 Erythema intertrigo (principal) | CPT/HCPCS: 87070; 87077; 87147; 87186; 87205 ==

== ENCOUNTER → 2023-04-16 | Outpatient (CLI) | payer OTHER | LOC: LAB SHORT 16:35 → LAB 16:35 | DX: J02.9 Acute pharyngitis, unspecified (principal) | CPT/HCPCS: 87081 ==

== ENCOUNTER → 2023-09-18 | Outpatient (CLI) | payer OTHER ==
[2023-09-18 16:01] LABS: Candida species (DNA Probe) Negative (NEGATIVE); G. vaginalis (DNA Probe) Negative (NEGATIVE); T. vaginalis (DNA Probe) Negative (NEGATIVE)
== END | disposition home or self-care (01) ==
LOC: LAB SHORT 10:06 → LAB 10:06
PROVIDERS: Obstetrics & Gynecology
DX: N76.0 Acute vaginitis (principal)
CPT/HCPCS: 87480; 87510; 87660

== ENCOUNTER 2023-09-29 12:11 | Emergency (ER) | payer OTHER ==
[~2023-09-29] VITALS: Ht 160 cm; Wt 122.5 kg
[2023-09-29 12:53] LABS: BASOPHILS ABSOLUTE AUTO 0.04 K/mm3 (0.00-0.23); BASOPHILS PERCENT AUTO 1 % (0-2); EOSINOPHILS ABSOLUTE AUTO 0.39 K/mm3 (0.00-0.68); EOSINOPHILS PERCENT AUTO 5 % (0-6); Hematocrit 42.9 % (33.0-51.0); IMMATURE GRAN ABSOLUTE AUTO 0.04 K/mm3 (0.00-0.10); IMMATURE GRAN PERCENT AUTO 1 % (0-1); LYMPHOCYTES PERCENT AUTO 25 % (21-46); MONOCYTES ABSOLUTE AUTO 0.65 K/mm3 (0.16-1.47); MONOCYTES PERCENT AUTO 8 % (4-13); Mean Corpuscular HGB 28.5 pg (26.0-34.0); Mean Corpuscular HGB Conc 32.6 g/dL (31.5-36.5); Mean Corpuscular Volume 87 fL (80-100); Mean Platelet Volume 8.7 fL (9.1-12.4); NEUTROPHILS ABSOLUTE AUTO 5.39 K/mm3 (1.96-9.15); NEUTROPHILS PERCENT AUTO 62 % (41-73); Platelet Count 248 K/mm3 (150-400); RDW Coefficient Variation 13.6 % (11.7-14.2); RDW Standard Deviation 43.4 fL (35.1-46.3); Red Blood Cell Count 4.92 M/mm3 (3.80-5.20); White Blood Cell Count 8.71 K/mm3 (4.00-11.30)
[2023-09-29 13:15] LABS: Albumin, Blood 3.2 g/dL (3.4-5.0); Albumin/Globulin Ratio 0.8 (0.8-1.8); Bilirubin, Total 0.3 mg/dL (0.1-1.0); Bun/Creatinine Ratio 17.9 (12.0-20.0); Calcium, Blood 8.5 mg/dL (8.5-10.1); Creatinine, Blood 0.67 mg/dL (0.40-1.00); Globulin, Blood 3.9 g/dL (2.2-4.0); Total Protein, Blood 7.1 g/dL (6.4-8.2)
[2023-09-29] MEDS ORDERED: PSEUDOEPHEDRINE30 M1 PO (14:48)
[2023-09-29 14:55] VITALS: BP 133/81
== END 2023-09-29 15:23 | disposition home or self-care (01) ==
LOC: ER 12:11
PROVIDERS: Emergency Medicine
DX: H65.92 Unspecified nonsuppurative otitis media, left ear (principal); S16.1XXA Strain of muscle, fascia and tendon at neck level, initial encounter; J45.909 Unspecified asthma, uncomplicated; I10 Essential (primary) hypertension; E78.5 Hyperlipidemia, unspecified; G47.33 Obstructive sleep apnea (adult) (pediatric); Z88.8 Allergy status to other drugs, medicaments and biological substances; Z91.048 Other nonmedicinal substance allergy status; Z79.51 Long term (current) use of inhaled steroids; Z79.82 Long term (current) use of aspirin; Z79.899 Other long term (current) drug therapy; Z87.891 Personal history of nicotine dependence; X50.1XXA Overexertion from prolonged static or awkward postures, initial encounter
CPT/HCPCS: 80053; 85025; 93005; 93010; 99285-25

== ENCOUNTER → 2025-02-19 | Outpatient (CLI) | payer OTHER ==
[~2025-02-19] MED LIST changes: +PSEUDOEPHEDRINE30 M1 PO
== END ==
LOC: LAB SHORT 16:52 → LAB 16:52
DX: R35.0 Frequency of micturition (principal)
CPT/HCPCS: 87086; 87147

== ENCOUNTER → 2025-02-28 | Outpatient (CLI) | payer OTHER ==
[2025-02-28 17:59] LABS: BASOPHILS ABSOLUTE AUTO 0.04 K/mm3 (0.00-0.23); BASOPHILS PERCENT AUTO 0 % (0-2); EOSINOPHILS ABSOLUTE AUTO 0.37 K/mm3 (0.00-0.68); EOSINOPHILS PERCENT AUTO 3 % (0-6); Hematocrit 43.2 % (33.0-51.0); Hemoglobin 14.2 g/dL (11.5-16.0); IMMATURE GRAN ABSOLUTE AUTO 0.07 K/mm3 (0.00-0.10); IMMATURE GRAN PERCENT AUTO 1 % (0-1); LYMPHOCYTES PERCENT AUTO 27 % (21-46); MONOCYTES ABSOLUTE AUTO 0.92 K/mm3 (0.16-1.47); MONOCYTES PERCENT AUTO 8 % (4-13); Mean Corpuscular HGB 28.1 pg (26.0-34.0); Mean Corpuscular HGB Conc 32.9 g/dL (31.5-36.5); Mean Corpuscular Volume 86 fL (80-100); Mean Platelet Volume 9.1 fL (9.1-12.4); NEUTROPHILS ABSOLUTE AUTO 7.24 K/mm3 (1.96-9.15); NEUTROPHILS PERCENT AUTO 61 % (41-73); Platelet Count 294 K/mm3 (150-400); RDW Coefficient Variation 13.8 % (11.7-14.2); RDW Standard Deviation 42.8 fL (35.1-46.3); Red Blood Cell Count 5.05 M/mm3 (3.80-5.20); White Blood Cell Count 11.84 K/mm3 (4.00-11.30)
[2025-02-28 18:21] LABS: Albumin/Globulin Ratio 0.4 (0.8-1.8); Bilirubin, Total 0.3 mg/dL (0.1-1.0); Bun/Creatinine Ratio 25.9 (12.0-20.0); Calcium, Blood 8.6 mg/dL (8.5-10.1); Creatinine, Blood 0.66 mg/dL (0.40-1.00); Globulin, Blood 4.8 g/dL (2.2-4.0); Potassium, Blood 4.1 mmol/L (3.5-5.5); Total Protein, Blood 6.8 g/dL (6.4-8.2)
== END ==
LOC: LAB SHORT 16:52 → LAB 16:52
PROVIDERS: Physician Assistant Medical
DX: R42 Dizziness and giddiness (principal)
CPT/HCPCS: 80053; 85025

== ENCOUNTER → 2025-07-08 | Outpatient (CLI) | payer OTHER | LOC: LAB 16:44 → LAB SHORT 16:44 | DX: R30.0 Dysuria (principal) | CPT/HCPCS: 87086; 87147 ==

== ENCOUNTER → 2025-07-30 | Outpatient (CLI) | payer OTHER | LOC: LAB SHORT 17:15 → LAB 17:15 | DX: N39.0 Urinary tract infection, site not specified (principal) | CPT/HCPCS: 87086 ==

== ENCOUNTER 2025-08-20 12:14 | Emergency (ER) | payer OTHER ==
[~2025-08-20] VITALS: Ht 157.5 cm; Wt 127.0 kg
[2025-08-20 13:36] VITALS: BP 154/98
[2025-08-20 14:26] LABS: BASOPHILS ABSOLUTE AUTO 0.04 K/mm3 (0.00-0.23); BASOPHILS PERCENT AUTO 0 % (0-2); EOSINOPHILS ABSOLUTE AUTO 0.18 K/mm3 (0.00-0.68); EOSINOPHILS PERCENT AUTO 2 % (0-6); Hematocrit 43.0 % (33.0-51.0); Hemoglobin 14.1 g/dL (11.5-16.0); IMMATURE GRAN ABSOLUTE AUTO 0.04 K/mm3 (0.00-0.10); IMMATURE GRAN PERCENT AUTO 0 % (0-1); LYMPHOCYTES ABSOLUTE AUTO 2.85 K/mm3 (0.84-5.20); LYMPHOCYTES PERCENT AUTO 29 % (21-46); MONOCYTES ABSOLUTE AUTO 0.81 K/mm3 (0.16-1.47); MONOCYTES PERCENT AUTO 8 % (4-13); Mean Corpuscular HGB Conc 32.8 g/dL (31.5-36.5); Mean Corpuscular Volume 86 fL (80-100); NEUTROPHILS ABSOLUTE AUTO 5.97 K/mm3 (1.96-9.15); NEUTROPHILS PERCENT AUTO 60 % (41-73); NRBC ABSOLUTE 0.00 K/mm3 (0.00-0.02); NRBC Auto 0.0 /100 WBC (0.0-0.2); Platelet Count 245 K/mm3 (150-400); RDW Coefficient Variation 14.3 % (11.7-14.2); RDW Standard Deviation 44.4 fL (35.1-46.3)
[2025-08-20 14:36] LABS: Alanine Aminotransfer (ALT/SGP 30.0 U/L (12-78); Albumin, Blood 3.2 g/dL (3.4-5.0); Albumin/Globulin Ratio 0.8 (0.8-1.8); Anion Gap 10.0 mmol/L (3-11); Aspartate Aminotrans (AST/SGOT 35.0 U/L (12-37); Bilirubin, Total 0.5 mg/dL (0.1-1.0); Blood Urea Nitrogen 15.0 mg/dL (8-24); CO2, Blood 24.0 mmol/L (21-32); Calcium, Blood 8.8 mg/dL (8.5-10.1); Chloride, Blood 107.0 mmol/L (98-108); Creatinine, Blood 0.66 mg/dL (0.40-1.00); Globulin, Blood 3.9 g/dL (2.2-4.0); Glucose, Blood 97.0 mg/dL (70-99); Potassium, Blood 4.1 mmol/L (3.5-5.5); Sodium, Blood 137.0 mmol/L (136-145); Total Protein, Blood 7.1 g/dL (6.4-8.2)
[2025-08-20 15:50] LABS: Source, Urine Clean Catch
[2025-08-20 16:05] LABS: Bilirubin, Urine Neg (Neg); Color, Urine Yellow (P-Yellow); Glucose Qualitative, Urine Neg (Neg); Ketones, Urine Neg (Neg); Leukocyte Esterase, Urine 2+ (Neg); Protein, Urine 1+ (Neg); Specific Gravity, Urine 1.015 (1.003-1.022); Urobilinogen, Urine NORM (Normal)
[2025-08-20 16:10] LABS: Yeast/Fungi Urine Rare /hpf
== END 2025-08-20 18:50 | disposition home or self-care (01) ==
LOC: ER 12:14
PROVIDERS: Physician Assistant
DX: R10.32 Left lower quadrant pain (principal); Z91.048 Other nonmedicinal substance allergy status; Z79.899 Other long term (current) drug therapy; Z87.891 Personal history of nicotine dependence
CPT/HCPCS: 74177; 80053; 81001; 83690; 85025; 87086; 99284-25; Q9967

== ENCOUNTER → 2025-08-28 | Outpatient (CLI) | payer OTHER | LOC: LAB 13:17 | DX: R39.9 Unspecified symptoms and signs involving the genitourinary system (principal) ==